=== PATIENT | male | born 1950 | race Caucasian/White ===

== ENCOUNTER 2016-10-01 10:33 | Emergency (ER) | payer OTHER ==
[2016-10-01] MEDS ORDERED: Sodium Chloride 0.9% 10 ML Syringe FLUSH PRN (10:52)
[2016-10-01] MEDS ORDERED: Aspirin 81 MG Tab.Chew PO ONE (10:52)
[2016-10-01] MEDS ORDERED: Morphine 4 MG/ML Syringe IVPUSH PRN (10:52)
--- NOTE | 2016-10-01 10:58 | EDM.PDOC ---
ED HISTORY OF PRESENT ILLNESS - General Chief Complaint: Cardiovascular Problem Stated Complaint: [id number] CHEST PAIN Time Seen by Provider: 10/01/16 10:54 Source of Information: Reports: Patient History Limitations: Reports: No limitations - History of Present Illness INITIAL COMMENTS - FREE TEXT/NARRATIVE: Pt states that he has been having flu like symptoms for the past 5 days but started having chest pain yesterday and today it became worse. states that he feels "like someone is standing on my chest with stilettos on" . denies shortness of breath currently. Symptom Onset Date: 10/01/16 Timing/Duration: Reports: Getting worse Severity: moderate Location, General: Reports: chest Quality: Reports: Pressure, Sharp Improves with: Reports: None Worsens with: Reports: None - Related Data Allergies/ADRs: Allergies Allergy/AdvReac Type Severity Reaction Status Date / Time prednisone Allergy Cannot Verified 02/16/16 11:13 Remember Home Meds: Home Meds Fish Oil/[place]-3 Fatty Acids [Fish Oil 1,000 MG] 2,000 mg PO BID 05/02/14 [ History] metFORMIN HCl [Metformin HCl] 1,000 mg PO BID 05/02/14 [History] Insulin Glargine,Hum.Rec.Anlog [Lantus Solostar] 80 units INJECT BEDTIME [History] Nitroglycerin [Nitrostat] 0.4 mg SL ONETIME PRN 12/15/14 [History] Metoprolol Tartrate 75 mg PO BID 04/03/16 [History] Niacin 1,000 mg PO BID 04/03/16 [History] Omeprazole 20 mg PO BEDTIME 04/03/16 [History] Aspirin 325 mg PO DAILY 10/01/16 [History] Past Medical History HEENT History: Reports: Other (see below) Other HEENT History: legally blind Cardiovascular History: Reports: Angina, CAD, High cholesterol, Hypertension, Stents Respiratory History: Reports: None Gastrointestinal History: Reports: GERD Genitourinary History: Reports: None Musculoskeletal History: Reports: None Neurological History: Reports: Other (see below) 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 Psychiatric History: Reports: None Endocrine/Metabolic History: Reports: Diabetes, type II Hematologic History: Reports: None Immunologic History: Reports: None Oncologic (Cancer) History: Reports: None Dermatologic History: Reports: None - Infectious Disease History Infectious Disease History: Reports: Chicken pox, Measles, Mumps - Past Surgical History Respiratory Surgical History: Reports: None Male Surgical History: Reports: None Social & Family History - Family History Family Medical History: Noncontributory - Tobacco Use Smoking Status *Q: Never Smoker Second Hand Smoke Exposure: No - Caffeine Use Caffeine Use: Reports: Coffee - Recreational Drug Use Recreational Drug Use: No - Living Situation & Occupation Living situation: Reports: Occupation: retired ED ROS GENERAL - Review of Systems Review Of Systems: See Below (radiating to bilateral sides of neck.) Cardiovascular: Reports: Chest pain ED EXAM, GENERAL - Physical Exam Exam: See Below Exam Limited By: No limitations General Appearance: alert, WD/WN, no apparent distress Head: atraumatic, normocephalic Neck: normal inspection, supple, non-tender, full range of motion Respiratory/Chest: no respiratory distress, lungs clear, normal breath sounds, no accessory muscle use, chest non-tender Cardiovascular: normal peripheral pulses, regular rate, rhythm, no edema, no gallop, no JVD, no murmur, no rub GI/Abdominal: normal bowel sounds, soft, non tender, no organomegaly, no distention, no abnormal bruit, no mass (Male) Exam: No hernia, Normal inspection, Normal prostate, Circumcised Neurological: alert, oriented, CN II-XII intact, normal cognition, normal gait, normal reflexes, no motor/sensory deficits Course - Vital Signs Last Recorded V/S: Last Vital Signs Temp 97.6 F 10/01/16 12:01 Pulse 74 10/01/16 12:01 Resp 17 10/01/16 12:01 BP 134/66 10/01/16 12:01 Pulse Ox 100 10/01/16 12:01 - Orders/Labs/Meds Orders: Active Orders 24 hr Category Date Time Status Cardiac Monitoring [RC] . DIRECTED Care 10/01/16 10:52 Active EKG Documentation Completion [RC] STAT Care 10/01/16 10:53 Active Oxygen Therapy [RC] PRN Care 10/01/16 10:53 Active Chest 2V [CR] Stat Exams 10/01/16 10:53 Taken Morphine Med 10/01/16 10:52 Active 4 mg IVPUSH Q10M PRN Sodium Chloride 0.9% [Saline Flush] Med 10/01/16 10:52 Active 10 ml FLUSH ASDIRECTED PRN Saline Lock Insert [OM.PC] Stat Oth 10/01/16 10:52 Ordered Medication Orders Morphine Sulfate (Morphine) 4 mg IVPUSH Q10M PRN PRN Reason: Chest Pain Stop: 10/02/16 10:52 Last Admin: 10/01/16 11:16 Dose: 4 mg Sodium Chloride (Saline Flush) 10 ml FLUSH ASDIRECTED PRN PRN Reason: Keep Vein Open Last Admin: 10/01/16 11:18 Dose: 10 ml Labs: Laboratory Tests 10/01/16 10/01/16 10/01/16 Range/Units 11:00 11:00 11:00 WBC 7.8 (5.0-10.0) 10^3/uL RBC 3.93 L (4.6-6.2) 10^6/uL Hgb 12.1 L (14.0-18.0) g/dL Hct 34.9 L (40.0-54.0) % MCV 88.8 (80-100) fL MCH 30.8 (27.0-34.0) pg MCHC 34.7 (33.0-35.0) g/dL Plt Count 230 (150-450) 10^3/uL Neut % (Auto) 53.2 (42.2-75.2) % Lymph % (Auto) 37.1 (20.5-50.1) % [place] % (Auto) 7.5 (2-8) % Eos % (Auto) 1.8 (1.0-3.0) % Baso % (Auto) 0.4 (0.0-1.0) % Sodium 138 (135-145) mmol/L Potassium 4.1 (3.6-5.0) mmol/L Chloride 104 (101-111) mmol/L Carbon Dioxide 25.0 (21.0-31.0) mmol/L Anion Gap 13.1 BUN 11 (7-18) mg/dL Creatinine 0.9 (0.6-1.3) mg/dL Est Cr Clr Drug Dosing TNP Estimated GFR (MDRD) > 60 BUN/Creatinine Ratio 12.22 Glucose 262 H (74-105) mg/dL Calcium 8.8 (8.4-10.2) mg/dl Total Bilirubin 0.4 (0.2-1.0) mg/dL AST 31 (10-42) IU/L ALT 50 (10-60) IU/L Alkaline Phosphatase 76 (42-121) IU/L Creatine Kinase 64 (26-174) IU/L Creatine Kinase Index 2.7 H (0-2.4) % CK-MB (CK-2) 1.70 (0.4-4.7) ng/mL Troponin I < 0.02 (0.00-0.02) ng/ml B-Natriuretic Peptide 77 (0-100) pg/ml Total Protein 6.5 L (6.7-8.2) g/dl Albumin 3.9 (3.2-5.5) g/dl Globulin 2.6 Albumin/Globulin Ratio 1.50 Meds: Medications Generic Name Dose Route Start Last Admin Trade Name Lloyd PRN Reason Stop Dose Admin Morphine Sulfate 4 mg 10/01/16 10:52 10/01/16 11:16 Morphine IVPUSH 10/02/16 10:52 4 mg Q10M PRN Administration Chest Pain Sodium Chloride 10 ml 10/01/16 10:52 10/01/16 11:18 Saline Flush FLUSH 10 ml ASDIRECTED PRN Administration Keep Vein Open Discontinued Medications Generic Name Dose Route Start Last Admin Trade Name Lloyd PRN Reason Stop Dose Admin Aspirin 324 mg 10/01/16 10:52 10/01/16 11:15 Aspirin PO 10/01/16 10:53 324 mg ONETIME ONE Administration - Re-Assessments/Exams Free Text/Narrative Re-Assessment/Exam: 10/01/16 12:11 Pt states that he feels better. No chest pain currently. Departure - Departure Time of Disposition: 12:20 Disposition: Home, Self-Care 01 Condition: good Clinical Impression: Chest pain Qualifiers: Chest pain type: unspecified Qualified Code(s): R07.9 - Chest pain, unspecified Forms: ED Department Discharge Additional Instructions: Take antacids as needed for any indigestion. Follow up with your PCP in 2 days for re-evaluation. Return for any worsening symptoms. - My Orders Last 24 Hours: My Active Orders 10/01/16 10:52 Cardiac Monitoring [RC] . DIRECTED Morphine 4 mg IVPUSH Q10M PRN Sodium Chloride 0.9% [Saline Flush] 10 ml FLUSH ASDIRECTED PRN Saline Lock Insert [OM.PC] Stat 10/01/16 10:53 EKG Documentation Completion [RC] STAT Oxygen Therapy [RC] PRN Chest 2V [CR] Stat - Assessment/Plan Last 24 Hours: My Active Orders 10/01/16 10:52 Cardiac Monitoring [RC] . DIRECTED Morphine 4 mg IVPUSH Q10M PRN Sodium Chloride 0.9% [Saline Flush] 10 ml FLUSH ASDIRECTED PRN Saline Lock Insert [OM.PC] Stat 10/01/16 10:53 EKG Documentation Completion [RC] STAT Oxygen Therapy [RC] PRN Chest 2V [CR] Stat
[2016-10-01 11:32] LABS: CHLORIDE,CL 104 mmol/L (101-111); SODIUM,NA 138 mmol/L (135-145)
[2016-10-01 12:03] VITALS: BP 134/66
--- NOTE | 2016-10-02 22:37 | EKG ---
10/01/2016 - JULY SEPULVEDA - TIME: 10:41 a.m. EKG shows normal sinus rhythm. There is a first-degree AV block. [facility] /[id number]
== END 2016-10-01 12:40 | disposition home or self-care (01) ==
LOC: DL.ED 10:33
DX: R07.9 Chest pain, unspecified (principal); I25.10 Atherosclerotic heart disease of native coronary artery without angina pectoris; E78.00 Pure hypercholesterolemia, unspecified; I10 Essential (primary) hypertension; K21.9 Gastro-esophageal reflux disease without esophagitis; E11.9 Type 2 diabetes mellitus without complications; Z88.8 Allergy status to other drugs, medicaments and biological substances; Z79.4 Long term (current) use of insulin
CPT/HCPCS: 36415; 71020; 80053; 82550; 82553; 83880; 84484; 85025; 93005; 93010; 94762; 99285; A9270; J2270; J7050; 99284

== ENCOUNTER 2016-11-15 12:10 | Emergency (ER) | payer OTHER ==
[2016-11-15 12:35] VITALS: BP 150/75
--- NOTE | 2016-11-15 13:28 | EDM.PDOC ---
ED HPI GENERAL MEDICAL PROBLEM - General Chief Complaint: Bite:Animal, Insect Stated Complaint: [facility] Time Seen by Provider: 11/15/16 13:27 Source of Information: Reports: Patient, RN History Limitations: Reports: No Limitations - History of Present Illness INITIAL COMMENTS - FREE TEXT/NARRATIVE: He pulled a tick off the anterior chest on Friday which is 4 days ago. The area at lower midline chest at median lower chest sternotomy incision. Area has become red and tender. No drainage. No fever. Says he is legally blind and that it definitely was a tick. Onset: Gradual Onset Date: 11/11/16 Duration: Day(s): Location: Reports: Chest Severity: Moderate Improves with: Reports: None Worsens with: Reports: None - Related Data Allergies Allergy/AdvReac Type Severity Reaction Status Date / Time prednisone Allergy Cannot Verified 02/16/16 11:13 Remember Home Meds: Home Meds Fish Oil/[place]-3 Fatty Acids [Fish Oil 1,000 MG] 2,000 mg PO BID 05/02/14 [ History] metFORMIN HCl [Metformin HCl] 1,000 mg PO BID 05/02/14 [History] Insulin Glargine,Hum.Rec.Anlog [Lantus Solostar] 80 units INJECT BEDTIME [History] Metoprolol Tartrate 75 mg PO BID 04/03/16 [History] Niacin 1,000 mg PO BID 04/03/16 [History] Omeprazole 20 mg PO BEDTIME 04/03/16 [History] Aspirin 325 mg PO DAILY 10/01/16 [History] Amiodarone HCl [Pacerone] 1 tab PO DAILY 11/15/16 [History] Cholecalciferol (Vitamin D3) [Vitamin D3] 2 tab PO BID 11/15/16 [History] Past Medical History HEENT History: Reports: Cataract, Other (See Below) Other HEENT History: legally blind Cardiovascular History: Reports: Angina, CAD, High Cholesterol, Hypertension, Stents Respiratory History: Reports: None Gastrointestinal History: Reports: GERD Genitourinary History: Reports: None Musculoskeletal History: Reports: None Neurological History: Reports: Other (See Below) 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 Psychiatric History: Reports: None Endocrine/Metabolic History: Reports: Diabetes, Type II Hematologic History: Reports: None Immunologic History: Reports: None Oncologic (Cancer) History: Reports: None Dermatologic History: Reports: None - Infectious Disease History Infectious Disease History: Reports: Chicken Pox, Measles, Mumps - Past Surgical History HEENT Surgical History: Reports: Cataract Surgery Cardiovascular Surgical History: Reports: Coronary Artery Bypass, Coronary Artery Stent Respiratory Surgical History: Reports: None Male Surgical History: Reports: None Musculoskeletal Surgical History: Reports: Arthroscopic Knee, Other (See Below) Other Musculoskeletal Surgeries/Procedures:: ulna relocation Social & Family History - Family History Family Medical History: Noncontributory - Tobacco Use Smoking Status *Q: Never Smoker Second Hand Smoke Exposure: No - Caffeine Use Caffeine Use: Reports: Coffee, Soda - Recreational Drug Use Recreational Drug Use: No - Living Situation & Occupation Living situation: Reports: Occupation: Retired ED ROS GENERAL - Review of Systems Review Of Systems: ROS reveals no pertinent complaints other than HPI. ED EXAM, ANIMAL BITE - Physical Exam Exam: See Below Exam Limited By: No Limitations General Appearance: Alert, WD/WN, No Apparent Distress Eye Exam: Bilateral Eye: Normal Inspection Respiratory/Chest: No Respiratory Distress, Lungs Clear, Normal Breath Sounds, No Accessory Muscle Use, Chest Non-Tender Skin Exam: Other (At the lower midline chest incision is an area of redness measuring about 2 cm with tender erythema to the left. There is 1 cm of superficial fluctuance which could be I and D'ed) ED ANIMAL BITE PROCEDURES - I&D Site: chest Skin prep: providone-iodine (betadine) Local anesthesia: Lidocaine: 1% with epi Drainage: clear, no drainage Probed to break up loculations: Yes Sterile dressing: none Complications: No (1 cm incision in area of most erythema which had minimal fluctuance. No purulence. Band nathaly applied by his nurse.) Course - Vital Signs Last Recorded V/S: Last Vital Signs Temp 97.4 F 11/15/16 12:34 Pulse 66 11/15/16 12:34 Resp 16 11/15/16 12:34 BP 150/75 H 11/15/16 12:34 Pulse Ox 100 11/15/16 12:34 - Orders/Labs/Meds Orders: Active Orders 24 hr Category Date Time Status CULTURE WOUND [RM] Stat Lab 11/15/16 14:28 Received [email or web address]/B.BURGDORFERI IGG/IGM [REF] Stat Lab 11/15/16 14:00 Received Labs: Laboratory Tests 11/15/16 Range/Units 14:00 WBC 6.5 (5.0-10.0) 10^3/uL RBC 3.76 L (4.6-6.2) 10^6/uL Hgb 11.6 L (14.0-18.0) g/dL Hct 34.3 L (40.0-54.0) % MCV 91.2 (80-100) fL MCH 30.9 (27.0-34.0) pg MCHC 33.8 (33.0-35.0) g/dL Plt Count 209 (150-450) 10^3/uL Neut % (Auto) 49.4 (42.2-75.2) % Lymph % (Auto) 37.8 (20.5-50.1) % [place] % (Auto) 8.6 H (2-8) % Eos % (Auto) 3.7 H (1.0-3.0) % Baso % (Auto) 0.5 (0.0-1.0) % Meds: Medications Discontinued Medications Generic Name Dose Route Start Last Admin Trade Name Ashq PRN Reason Stop Dose Admin Lidocaine/Epinephrine 20 ml 11/15/16 13:50 11/15/16 14:48 Xylocaine 1% With Epinephrine 1:100,000 INJECT 11/15/16 13:51 20 ml ONETIME ONE Administration Departure - Departure Time of Disposition: 14:55 Disposition: Home, Self-Care 01 Condition: good Clinical Impression: Abscess or cellulitis of chest wall Cellulitis Qualifiers: Site of cellulitis: other site Qualified Code(s): L03.818 - Cellulitis of other sites - Discharge Information Instructions: Cellulitis, Adult, [id number] Forms: ED Department Discharge Additional Instructions: Rx ; Doxcycline 100 mg po bid for 10 days. Follow up with your doctor in 7 days. Have your doctor repeat lymes test in one month. - My Orders Last 24 Hours: My Active Orders 11/15/16 14:00 [email or web address]/B.BURGDORFERI IGG/IGM [REF] Stat 11/15/16 14:28 CULTURE WOUND [RM] Stat - Assessment/Plan Last 24 Hours: My Active Orders 11/15/16 14:00 [email or web address]/B.BURGDORFERI IGG/IGM [REF] Stat 11/15/16 14:28 CULTURE WOUND [RM] Stat
[2016-11-15] MEDS ORDERED: Lidocaine 1% with EPINEPHrine 1:100,000 20 ML MDV INJECT ONE (13:50)
== END 2016-11-15 15:00 | disposition home or self-care (01) ==
LOC: DL.ED 12:10
DX: L03.313 Cellulitis of chest wall (principal); E78.00 Pure hypercholesterolemia, unspecified; I10 Essential (primary) hypertension; K21.9 Gastro-esophageal reflux disease without esophagitis; I25.10 Atherosclerotic heart disease of native coronary artery without angina pectoris; E11.9 Type 2 diabetes mellitus without complications; Z88.8 Allergy status to other drugs, medicaments and biological substances; Z79.4 Long term (current) use of insulin; Z79.82 Long term (current) use of aspirin; Z79.899 Other long term (current) drug therapy; W57.XXXA Bitten or stung by nonvenomous insect and other nonvenomous arthropods, initial encounter
CPT/HCPCS: 10060; 36415; 85025; 86618; 87070; 99283

== ENCOUNTER 2016-12-05 20:47 | Emergency (ER) | payer OTHER ==
[2016-12-05 20:59] VITALS: BP 153/73
--- NOTE | 2016-12-05 21:24 | EDM.PDOC ---
ED HPI GENERAL MEDICAL PROBLEM - General Chief Complaint: Chest Pain Stated Complaint: CHEST PAINS, [id number] Time Seen by Provider: 12/05/16 21:15 Source of Information: Reports: Patient History Limitations: Reports: No Limitations - History of Present Illness INITIAL COMMENTS - FREE TEXT/NARRATIVE: This 66 yo male patient reports to the ED with chest pain that started at about 1000 this morning. The patient reports he has had similar chest pain over the past 10 days. The patient reports [facility] and was told "not to worry about it." The patient reports he took 2 doses of Nitro today with no change in his pain. The patient reports over the past 10 days, his pain has been present for 5-6 hours, but resolved after rest. The patient has had about 7 stents and 3 bypasses in the past. Onset: Today Onset Date: 12/05/16 Onset Time: 10:00 Duration: Intermittent, Other (The patient describes his pain as a "fat lady in heels standing on my chest.") Location: Reports: Chest Quality: Reports: Ache, Dull, Other (radiates to his arms) Severity: Severe Improves with: Reports: None Worsens with: Reports: None Associated Symptoms: Reports: Chest Pain Treatments GUEST RELATIONS RECEPTIONIST: Reports: Aspirin, Nitroglycerin (x2) Middle Chest Pain Score (Numeric/FACES): 5 - Related Data Allergies Allergy/AdvReac Type Severity Reaction Status Date / Time prednisone Allergy Cannot Verified 12/05/16 20:55 Remember Home Meds: Home Meds Fish Oil/[place]-3 Fatty Acids [Fish Oil 1,000 MG] 2,000 mg PO BID 05/02/14 [ History] metFORMIN HCl [Metformin HCl] 1,000 mg PO BID 05/02/14 [History] Insulin Glargine,Hum.Rec.Anlog [Lantus Solostar] 80 units INJECT BEDTIME [History] Metoprolol Tartrate 75 mg PO BID 04/03/16 [History] Niacin 1,000 mg PO BID 04/03/16 [History] Omeprazole 20 mg PO BEDTIME 04/03/16 [History] Aspirin 325 mg PO DAILY 10/01/16 [History] Amiodarone HCl [Pacerone] 1 tab PO DAILY 11/15/16 [History] Cholecalciferol (Vitamin D3) [Vitamin D3] 2 tab PO BID 11/15/16 [History] Past Medical History HEENT History: Reports: Cataract, Other (See Below) Other HEENT History: legally blind Cardiovascular History: Reports: Angina, CAD, High Cholesterol, Hypertension, Stents Respiratory History: Reports: None Gastrointestinal History: Reports: GERD Genitourinary History: Reports: None Musculoskeletal History: Reports: None Neurological History: Reports: Other (See Below) 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 Psychiatric History: Reports: None Endocrine/Metabolic History: Reports: Diabetes, Type II Hematologic History: Reports: None Immunologic History: Reports: None Oncologic (Cancer) History: Reports: None Dermatologic History: Reports: None - Infectious Disease History Infectious Disease History: Reports: Chicken Pox, Measles, Mumps - Past Surgical History HEENT Surgical History: Reports: Cataract Surgery Cardiovascular Surgical History: Reports: Coronary Artery Bypass, Coronary Artery Stent Respiratory Surgical History: Reports: None Male Surgical History: Reports: None Musculoskeletal Surgical History: Reports: Arthroscopic Knee, Other (See Below) Other Musculoskeletal Surgeries/Procedures:: ulna relocation Social & Family History - Family History Family Medical History: Noncontributory - Tobacco Use Smoking Status *Q: Never Smoker Second Hand Smoke Exposure: No - Caffeine Use Caffeine Use: Reports: Coffee, Soda - Recreational Drug Use Recreational Drug Use: No - Living Situation & Occupation Living situation: Reports: Occupation: Retired ED ROS GENERAL - Review of Systems Review Of Systems: ROS reveals no pertinent complaints other than HPI. ED EXAM, GENERAL - Physical Exam Exam: See Below Exam Limited By: No Limitations General Appearance: Alert, WD/WN, Moderate Distress Eye Exam: Bilateral Eye: EOMI, Normal Inspection, PERRL Ears: Normal External Exam, Normal Canal, Hearing Grossly Normal, Normal TMs Nose: Normal Inspection, Normal Mucosa, No Blood Throat/Mouth: Normal Inspection, Normal Lips, Normal Teeth, Normal Gums, Normal Oropharynx, Normal Voice, No Airway Compromise Head: Atraumatic, Normocephalic Neck: Normal Inspection, Supple, Non-Tender, Full Range of Motion Respiratory/Chest: No Respiratory Distress, Lungs Clear, Normal Breath Sounds, No Accessory Muscle Use, Chest Non-Tender Cardiovascular: Normal Peripheral Pulses, Regular Rate, Rhythm, No Edema, No Gallop GI/Abdominal: Normal Bowel Sounds, Soft, Non-Tender, No Organomegaly, No Distention, No Abnormal Bruit, No Mass (Male) Exam: Deferred Rectal (Males) Exam: Deferred Back Exam: Normal Inspection, Full Range of Motion, NT Extremities: Normal Inspection, Normal Range of Motion, Non-Tender, Normal Capillary Refill, No Pedal Edema Neurological: Alert, Oriented, CN II-XII Intact, Normal Cognition, Normal Gait, Normal Reflexes, No Motor/Sensory Deficits Psychiatric: Normal Affect, Normal Mood Skin Exam: Warm, Dry, Intact, Normal Color, No Rash Lymphatic: No Adenopathy Course - Vital Signs Last Recorded V/S: Last Vital Signs Temp 36.4 C 12/05/16 20:55 Pulse 68 12/05/16 20:55 Resp 18 12/05/16 20:55 BP 153/73 H 12/05/16 20:55 Pulse Ox 99 12/05/16 20:55 - Orders/Labs/Meds Orders: Active Orders 24 hr Category Date Time Status EKG Documentation Completion [RC] URGENT Care 12/05/16 20:57 Active Labs: Laboratory Tests 12/05/16 12/05/16 Range/Units 20:55 20:55 WBC 8.4 (5.0-10.0) 10^3/uL RBC 3.92 L (4.6-6.2) 10^6/uL Hgb 12.3 L (14.0-18.0) g/dL Hct 35.4 L (40.0-54.0) % MCV 90.3 (80-100) fL MCH 31.4 (27.0-34.0) pg MCHC 34.7 (33.0-35.0) g/dL Plt Count 273 (150-450) 10^3/uL Neut % (Auto) 49.5 (42.2-75.2) % Lymph % (Auto) 37.1 (20.5-50.1) % [place] % (Auto) 8.2 H (2-8) % Eos % (Auto) 4.6 H (1.0-3.0) % Baso % (Auto) 0.6 (0.0-1.0) % Sodium 139 (135-145) mmol/L Potassium 3.9 (3.6-5.0) mmol/L Chloride 104 (101-111) mmol/L Carbon Dioxide 26.0 (21.0-31.0) mmol/L Anion Gap 12.9 BUN 18 (7-18) mg/dL Creatinine 0.9 (0.6-1.3) mg/dL Est Cr Clr Drug Dosing 86.22 mL/min Estimated GFR (MDRD) > 60 BUN/Creatinine Ratio 20.00 Glucose 187 H (74-105) mg/dL Calcium 9.6 (8.4-10.2) mg/dl Total Bilirubin 0.2 (0.2-1.0) mg/dL AST 23 (10-42) IU/L ALT 23 (10-60) IU/L Alkaline Phosphatase 75 (42-121) IU/L Troponin I < 0.02 (0.00-0.02) ng/ml Total Protein 7.1 (6.7-8.2) g/dl Albumin 4.2 (3.2-5.5) g/dl Globulin 2.9 Albumin/Globulin Ratio 1.45 Meds: Medications Discontinued Medications Generic Name Dose Route Start Last Admin Trade Name Freq PRN Reason Stop Dose Admin Al Hydroxide/Mg Hydroxide 30 ml 12/05/16 21:44 12/05/16 21:48 Gi Cocktail PO 12/05/16 21:45 30 ml ONETIME ONE Administration Departure - Departure Time of Disposition: 10:49 Disposition: Home, Self-Care 01 Condition: fair Clinical Impression: Non-cardiac chest pain Instructions: Nonspecific Chest Pain, [id number] Forms: ED Department Discharge Care Plan Goals: The patient was advised of the examination, lab, and EKG results during the visit. The patient was encouraged to follow-up with his primary care facility tomorrow for further evaluation and management. If the patient has any additional symptoms or concerns, the patient should visit his primary care facility or return to the emergency department. - My Orders Last 24 Hours: My Active Orders 12/05/16 20:57 EKG Documentation Completion [RC] URGENT - Assessment/Plan Last 24 Hours: My Active Orders 12/05/16 20:57 EKG Documentation Completion [RC] URGENT
[2016-12-05 21:26] LABS: CHLORIDE,CL 104 mmol/L (101-111); SODIUM,NA 139 mmol/L (135-145)
[2016-12-05] MEDS ORDERED: GI Cocktail Oral Solution 30 ML PO ONE (21:44)
--- NOTE | 2016-12-06 12:12 | EKG ---
12/05/2016 - JULY SEPULVEDA - Twelve-lead EKG shows normal sinus rhythm. No significant ST elevation or ST depression noted on this 12-lead EKG. Nonspecific T-wave changes noted on the lateral leads. [facility] /[id number]
== END 2016-12-05 23:02 | disposition home or self-care (01) ==
LOC: DL.ED 20:47
DX: R07.89 Other chest pain (principal); I10 Essential (primary) hypertension; K21.9 Gastro-esophageal reflux disease without esophagitis; E11.9 Type 2 diabetes mellitus without complications; Z98.49 Cataract extraction status, unspecified eye; Z95.5 Presence of coronary angioplasty implant and graft; Z79.899 Other long term (current) drug therapy; Z79.84 Long term (current) use of oral hypoglycemic drugs; Z79.4 Long term (current) use of insulin; Z79.82 Long term (current) use of aspirin; Z88.8 Allergy status to other drugs, medicaments and biological substances; I25.810 Atherosclerosis of coronary artery bypass graft(s) without angina pectoris; E78.00 Pure hypercholesterolemia, unspecified
CPT/HCPCS: 36415; 80053; 84484; 85025; 93005; 93010; 99283; 99285; A9270

== ENCOUNTER 2017-08-05 15:03 | Emergency (ER) | payer OTHER ==
[2017-08-05 16:13] LABS: ANION GAP 15.2; CHLORIDE,CL 104 mmol/L (101-111); SODIUM,NA 139 mmol/L (135-145)
--- NOTE | 2017-08-05 16:15 | EDM.PDOC ---
ED HPI GENERAL MEDICAL PROBLEM - General Chief Complaint: General Stated Complaint: ACHES/PAINS, FLU... [id number] Time Seen by Provider: 08/05/17 16:00 Source of Information: Reports: Patient, RN, RN Notes Reviewed History Limitations: Reports: No Limitations - History of Present Illness INITIAL COMMENTS - FREE TEXT/NARRATIVE: Patient presents to ER from [place] clinic with complaint of not feeling well and right sided chest pressure. He is short of breath at times. His symptoms began on Friday. He has had vomiting, nausea, diarrhea, fever, chills and feeling weak. He has been exposed to Influenza A. Location: Reports: Chest Quality: Reports: Ache Severity: Moderate Improves with: Reports: None Worsens with: Reports: None Associated Symptoms: Reports: No Other Symptoms Generalized Pain Score (Numeric/FACES): 5 - Related Data Allergies Allergy/AdvReac Type Severity Reaction Status Date / Time prednisone Allergy Cannot Verified 12/05/16 20:55 Remember Home Meds: Home Meds Fish Oil/[place]-3 Fatty Acids [Fish Oil 1,000 MG] 2,000 mg PO BID 05/02/14 [ History] metFORMIN HCl [Metformin HCl] 1,000 mg PO BID 05/02/14 [History] Insulin Glargine,Hum.Rec.Anlog [Lantus Solostar] 80 units INJECT BEDTIME [History] Metoprolol Tartrate 75 mg PO BID 04/03/16 [History] Niacin 1,000 mg PO BID 04/03/16 [History] Omeprazole 20 mg PO BEDTIME 04/03/16 [History] Aspirin 325 mg PO DAILY 10/01/16 [History] Amiodarone HCl [Pacerone] 1 tab PO DAILY 11/15/16 [History] Cholecalciferol (Vitamin D3) [Vitamin D3] 2 tab PO BID 11/15/16 [History] Past Medical History HEENT History: Reports: Cataract, Other (See Below) Other HEENT History: legally blind Cardiovascular History: Reports: Angina, CAD, High Cholesterol, Hypertension, Stents Respiratory History: Reports: None Gastrointestinal History: Reports: GERD Genitourinary History: Reports: None Musculoskeletal History: Reports: None Neurological History: Reports: Other (See Below) 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 Psychiatric History: Reports: None Endocrine/Metabolic History: Reports: Diabetes, Type II Hematologic History: Reports: None Immunologic History: Reports: None Oncologic (Cancer) History: Reports: None Dermatologic History: Reports: None - Infectious Disease History Infectious Disease History: Reports: Chicken Pox, Measles, Mumps - Past Surgical History HEENT Surgical History: Reports: Cataract Surgery Cardiovascular Surgical History: Reports: Coronary Artery Bypass, Coronary Artery Stent Respiratory Surgical History: Reports: None Male Surgical History: Reports: None Musculoskeletal Surgical History: Reports: Arthroscopic Knee, Other (See Below) Other Musculoskeletal Surgeries/Procedures:: ulna relocation Social & Family History - Family History Family Medical History: Noncontributory - Tobacco Use Smoking Status *Q: Never Smoker Second Hand Smoke Exposure: No - Caffeine Use Caffeine Use: Reports: Coffee, Soda - Recreational Drug Use Recreational Drug Use: No - Living Situation & Occupation Living situation: Reports: Occupation: Retired ED ROS GENERAL - Review of Systems Review Of Systems: ROS reveals no pertinent complaints other than HPI. ED EXAM, GENERAL - Physical Exam Exam: See Below Exam Limited By: No Limitations General Appearance: Alert, WD/WN, No Apparent Distress Eye Exam: Bilateral Eye: Normal Inspection Ears: Normal External Exam, Normal Canal, Hearing Grossly Normal, Normal TMs Nose: Normal Inspection, Normal Mucosa, No Blood Throat/Mouth: Normal Inspection, Normal Lips, Normal Teeth, Normal Gums, Normal Oropharynx, Normal Voice, No Airway Compromise Head: Atraumatic, Normocephalic Neck: Normal Inspection, Supple, Non-Tender, Full Range of Motion Respiratory/Chest: Other (diminished) Cardiovascular: Normal Peripheral Pulses, Regular Rate, Rhythm, No Edema, No Gallop, No JVD, No Murmur, No Rub GI/Abdominal: Normal Bowel Sounds, Soft, Non-Tender, No Organomegaly, No Distention, No Abnormal Bruit, No Mass (Male) Exam: Deferred Rectal (Males) Exam: Deferred Back Exam: Normal Inspection Extremities: Other (weak, aches and decreased range of motion.) Neurological: Alert, Oriented, CN II-XII Intact, Normal Cognition, Normal Gait, Normal Reflexes, No Motor/Sensory Deficits Psychiatric: Normal Affect, Normal Mood Skin Exam: Other (pale) Lymphatic: No Adenopathy EKG INTERPRETATION EKG Date: 08/05/17 Time: 15:29 Rate (Beats/Min): 62 EKG Interpretation Comments: EKG shows sinus rhythm. First degree AV block. Course - Vital Signs Last Recorded V/S: Last Vital Signs Temp 97.6 F 08/05/17 15:21 Pulse 61 08/05/17 15:21 Resp 16 08/05/17 15:21 BP 133/78 08/05/17 15:21 Pulse Ox 99 08/05/17 15:21 - Orders/Labs/Meds Orders: Active Orders 24 hr Category Date Time Status EKG Documentation Completion [RC] STAT Care 08/05/17 15:20 Active Peripheral IV Care [RC] . DIRECTED Care 08/05/17 16:24 Active Chest 1V Frontal [CR] Stat Exams 08/05/17 15:20 Taken CULTURE BLOOD [BC] Stat Lab 08/05/17 15:35 Received CULTURE BLOOD [BC] Stat Lab 08/05/17 15:44 Received UA W/MICROSCOPIC [URIN] Stat Lab 08/05/17 17:17 Ordered Sodium Chloride 0.9% [Normal Saline] 1,000 ml Med 08/05/17 16:24 Active IV .BOLUS Sodium Chloride 0.9% [Saline Flush] Med 08/05/17 16:23 Active 10 ml FLUSH ASDIRECTED PRN Blood Culture x2 Reflex Set [OM.PC] Stat Oth 08/05/17 15:20 Ordered Peripheral IV Insertion Adult [OM.PC] Stat Oth 08/05/17 16:23 Ordered Medication Orders Sodium Chloride (Normal Saline) 1,000 mls @ 999 mls/hr IV .BOLUS ONE Stop: 08/05/17 17:24 Last Admin: 08/05/17 16:40 Dose: 999 mls/hr Sodium Chloride (Saline Flush) 10 ml FLUSH ASDIRECTED PRN PRN Reason: Keep Vein Open Last Admin: 08/05/17 16:40 Dose: 10 ml Labs: Laboratory Tests 08/05/17 08/05/17 08/05/17 Range/Units 15:35 15:35 15:35 WBC 9.5 (5.0-10.0) 10^3/uL RBC 4.45 L (4.6-6.2) 10^6/uL Hgb 13.4 L (14.0-18.0) g/dL Hct 39.5 L (40.0-54.0) % MCV 88.8 (80-100) fL MCH 30.1 (27.0-34.0) pg MCHC 33.9 (33.0-35.0) g/dL Plt Count 292 (150-450) 10^3/uL Neut % (Auto) 60.1 (42.2-75.2) % Lymph % (Auto) 29.8 (20.5-50.1) % [place] % (Auto) 6.8 (2-8) % Eos % (Auto) 3.1 H (1.0-3.0) % Baso % (Auto) 0.2 (0.0-1.0) % Sodium 139 (135-145) mmol/L Potassium 4.2 (3.6-5.0) mmol/L Chloride 104 (101-111) mmol/L Carbon Dioxide 24.0 (21.0-31.0) mmol/L Anion Gap 15.2 BUN 18 (7-18) mg/dL Creatinine 1.1 (0.6-1.3) mg/dL Est Cr Clr Drug Dosing 70.55 mL/min Estimated GFR (MDRD) > 60 BUN/Creatinine Ratio 16.36 Glucose 97 (74-105) mg/dL Lactic Acid 1.4 (0.5-2.2) mmol/L Calcium 9.2 (8.4-10.2) mg/dl Total Bilirubin 0.8 (0.2-1.0) mg/dL AST 23 (10-42) IU/L ALT 24 (10-60) IU/L Alkaline Phosphatase 70 (42-121) IU/L Troponin I < 0.02 (0.00-0.02) ng/ml B-Natriuretic Peptide 58 (0-100) pg/ml Total Protein 8.1 (6.7-8.2) g/dl Albumin 4.7 (3.2-5.5) g/dl Globulin 3.4 Albumin/Globulin Ratio 1.38 Meds: Medications Generic Name Dose Route Start Last Admin Trade Name Freq PRN Reason Stop Dose Admin Sodium Chloride 1,000 mls @ 999 mls/hr 08/05/17 16:24 08/05/17 16:40 Normal Saline IV 08/05/17 17:24 999 mls/hr .BOLUS ONE Administration Sodium Chloride 10 ml 08/05/17 16:23 08/05/17 16:40 Saline Flush FLUSH 10 ml ASDIRECTED PRN Administration Keep Vein Open - Radiology Interpretation Free Text/Narrative:: Chest x-ray:No acute findings.See Rad report. Departure - Departure Time of Disposition: 17:45 Disposition: Home, Self-Care 01 Condition: Fair Clinical Impression: Gastroenteritis - Discharge Information Instructions: Viral Gastroenteritis, Adult, [id number], Food Choices to Help Relieve Diarrhea, Adult, Nausea, Adult, [id number], Diarrhea, Adult, Easy-to- Read Forms: ED Department Discharge Additional Instructions: Imodium for diarrhea Drink plenty of fluids Follow up with your primary care facility Rest - My Orders Last 24 Hours: My Active Orders 08/05/17 15:20 EKG Documentation Completion [RC] STAT Chest 1V Frontal [CR] Stat Blood Culture x2 Reflex Set [OM.PC] Stat 08/05/17 15:35 CULTURE BLOOD [BC] Stat 08/05/17 15:44 CULTURE BLOOD [BC] Stat 08/05/17 16:23 Sodium Chloride 0.9% [Saline Flush] 10 ml FLUSH ASDIRECTED PRN Peripheral IV Insertion Adult [OM.PC] Stat 08/05/17 16:24 Peripheral IV Care [RC] . DIRECTED Sodium Chloride 0.9% [Normal Saline] 1,000 ml IV .BOLUS 08/05/17 17:17 UA W/MICROSCOPIC [URIN] Stat - Assessment/Plan Last 24 Hours: My Active Orders 08/05/17 15:20 EKG Documentation Completion [RC] STAT Chest 1V Frontal [CR] Stat Blood Culture x2 Reflex Set [OM.PC] Stat 08/05/17 15:35 CULTURE BLOOD [BC] Stat 08/05/17 15:44 CULTURE BLOOD [BC] Stat 08/05/17 16:23 Sodium Chloride 0.9% [Saline Flush] 10 ml FLUSH ASDIRECTED PRN Peripheral IV Insertion Adult [OM.PC] Stat 08/05/17 16:24 Peripheral IV Care [RC] . DIRECTED Sodium Chloride 0.9% [Normal Saline] 1,000 ml IV .BOLUS 08/05/17 17:17 UA W/MICROSCOPIC [URIN] Stat
[2017-08-05] MEDS ORDERED: Sodium Chloride 0.9% 10 ML Syringe FLUSH PRN (16:23)
[2017-08-05] MEDS ORDERED: Sodium Chloride 0.9% 1,000 ML IV ONE (16:24)
[2017-08-05 18:00] VITALS: BP 129/65
--- NOTE | 2017-08-07 18:41 | EKG ---
08/05/2017 - JULY SEPULVEDA - FINDINGS: A 12-lead EKG shows normal sinus rhythm with first-degree AV block. [place] interval of 264. QTc of 472. No significant ST elevation or ST depression noted on this 12-lead EKG. [facility] /[id number]
== END 2017-08-05 17:49 | disposition home or self-care (01) ==
LOC: DL.ED 15:03 → EEVIPCON 15:03 → DL.ED 17:49
DX: K52.9 Noninfective gastroenteritis and colitis, unspecified (principal); R07.89 Other chest pain; I10 Essential (primary) hypertension; I25.10 Atherosclerotic heart disease of native coronary artery without angina pectoris; E78.00 Pure hypercholesterolemia, unspecified; E11.9 Type 2 diabetes mellitus without complications; K21.9 Gastro-esophageal reflux disease without esophagitis; Z79.82 Long term (current) use of aspirin; Z79.4 Long term (current) use of insulin; Z79.899 Other long term (current) drug therapy; Z88.8 Allergy status to other drugs, medicaments and biological substances; Z95.1 Presence of aortocoronary bypass graft; Z95.5 Presence of coronary angioplasty implant and graft
CPT/HCPCS: 36415; 71045; 80053; 81001; 83605; 83880; 84484; 85025; 87040; 93005; 93010; 96360; 99284; J7030; J7050; 99283

== ENCOUNTER 2017-08-18 12:08 | Emergency (ER) | payer OTHER ==
[2017-08-18] MEDS ORDERED: Sodium Chloride 0.9% 10 ML Syringe FLUSH PRN (12:09)
--- NOTE | 2017-08-18 12:09 | EDM.PDOC ---
ED HPI GENERAL MEDICAL PROBLEM - General Chief Complaint: Chest Pain Stated Complaint: FROM [place] Time Seen by Provider: 08/18/17 12:09 Source of Information: Reports: Patient, Old Records, RN, RN Notes Reviewed History Limitations: Reports: No Limitations - History of Present Illness INITIAL COMMENTS - FREE TEXT/NARRATIVE: Arrives from [place] [facility] with c/o of chest pain x4 days. Pt states the pain has actually been there intermittently for nearly a year. Pt describes a sharp pain under the mid and upper chest that is worse with deep breathing and cough. Pt states he feels an urge to cough, but nothing comes up, and he states he really doesn't actually have a cough. Pt has been taking Nitroglycerin 0.4mg SL several times a day without any relief of the pain. He also has been taking Aspirin 325mg once daily. He has not followed up with a supervisory aide since having a CABG 2 yrs ago. Onset: Unknown/Unsure Duration: Intermittent, Recurring Location: Reports: Chest Quality: Reports: Sharp Severity: Mild Improves with: Reports: None Worsens with: Reports: None Associated Symptoms: Reports: No Other Symptoms Treatments CONTENT WRITER: Reports: Aspirin, Nitroglycerin Left Mid-Sternal Chest Pain Score (Numeric/FACES): 4 - Related Data Allergies Allergy/AdvReac Type Severity Reaction Status Date / Time prednisone Allergy Cannot Verified 08/18/17 12:26 Remember Home Meds: Home Meds Fish Oil/[place]-3 Fatty Acids [Fish Oil 1,000 MG] 2,000 mg PO BID 05/02/14 [ History] metFORMIN HCl [Metformin HCl] 1,000 mg PO BID 05/02/14 [History] Insulin Glargine,Hum.Rec.Anlog [Lantus Solostar] 90 units INJECT BEDTIME [History] Metoprolol Tartrate 75 mg PO BID 04/03/16 [History] Niacin 1,000 mg PO BID 04/03/16 [History] Omeprazole 20 mg PO BEDTIME 04/03/16 [History] Aspirin 325 mg PO DAILY 10/01/16 [History] Amiodarone HCl [Pacerone] 1 tab PO DAILY 11/15/16 [History] Cholecalciferol (Vitamin D3) [Vitamin D3] 2 tab PO BID 11/15/16 [History] Past Medical History HEENT History: Reports: Cataract, Other (See Below) Other HEENT History: legally blind Cardiovascular History: Reports: Angina, CAD, High Cholesterol, Hypertension, Stents Respiratory History: Reports: None Gastrointestinal History: Reports: GERD Genitourinary History: Reports: None Musculoskeletal History: Reports: None Neurological History: Reports: Other (See Below) 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 Psychiatric History: Reports: None Endocrine/Metabolic History: Reports: Diabetes, Type II Hematologic History: Reports: None Immunologic History: Reports: None Oncologic (Cancer) History: Reports: None Dermatologic History: Reports: None - Infectious Disease History Infectious Disease History: Reports: Chicken Pox, Measles, Mumps - Past Surgical History HEENT Surgical History: Reports: Cataract Surgery Cardiovascular Surgical History: Reports: Coronary Artery Bypass, Coronary Artery Stent Respiratory Surgical History: Reports: None Male Surgical History: Reports: None Musculoskeletal Surgical History: Reports: Arthroscopic Knee, Other (See Below) Other Musculoskeletal Surgeries/Procedures:: ulna relocation Social & Family History - Family History Family Medical History: Noncontributory - Tobacco Use Smoking Status *Q: Never Smoker Second Hand Smoke Exposure: No - Caffeine Use Caffeine Use: Reports: Coffee, Soda - Recreational Drug Use Recreational Drug Use: No - Living Situation & Occupation Living situation: Reports: Occupation: Retired ED ROS GENERAL - Review of Systems Review Of Systems: ROS reveals no pertinent complaints other than HPI. ED EXAM, GENERAL - Physical Exam Exam: See Below Exam Limited By: No Limitations General Appearance: Alert, WD/WN, No Apparent Distress Nose: Normal Inspection, Normal Mucosa, No Blood Throat/Mouth: Normal Inspection Head: Atraumatic, Normocephalic Neck: Normal Inspection, Supple, Non-Tender, Full Range of Motion Respiratory/Chest: No Respiratory Distress, Lungs Clear, Normal Breath Sounds, No Accessory Muscle Use, Chest Non-Tender Cardiovascular: Normal Peripheral Pulses, Regular Rate, Rhythm, No Edema, No Gallop, No JVD, No Murmur, No Rub GI/Abdominal: Normal Bowel Sounds, Soft, Non-Tender, No Distention Back Exam: Normal Inspection Extremities: Normal Inspection, Normal Range of Motion, Non-Tender, Normal Capillary Refill, No Pedal Edema Neurological: Alert, Oriented, CN II-XII Intact, Normal Cognition, Normal Gait, No Motor/Sensory Deficits Psychiatric: Anxious Skin Exam: Warm, Dry, Intact, Normal Color, No Rash EKG INTERPRETATION EKG Date: 08/18/17 Time: 12:08 Rhythm: Other (SR) Rate (Beats/Min): 71 [place]: Normal P-Wave: Present QRS: Other (1st degree AVB) ST-T: Other (Nonspecific T-wave abnl. in lateral leads) QT: Normal Comparison: NA - No Prior EKG Course - Vital Signs Last Recorded V/S: Last Vital Signs Temp 36.5 C 08/18/17 12:08 Pulse 72 08/18/17 12:08 Resp 18 08/18/17 12:08 BP 137/70 08/18/17 12:08 Pulse Ox 98 08/18/17 12:08 - Orders/Labs/Meds Orders: Active Orders 24 hr Category Date Time Status EKG 12 Lead [EKG Documentation Completion] [RC] STAT Care 08/18/17 12:10 Peripheral IV Care [RC] . DIRECTED Care 08/18/17 12:10 Chest 1V Frontal [CR] Stat Exams 08/18/17 12:10 Ordered Sodium Chloride 0.9% [Saline Flush] Med 08/18/17 12:09 Active 10 ml FLUSH ASDIRECTED PRN Peripheral IV Insertion Adult [OM.PC] Stat Oth 08/18/17 12:10 Ordered Medication Orders Sodium Chloride (Saline Flush) 10 ml FLUSH ASDIRECTED PRN PRN Reason: Keep Vein Open Last Admin: 08/18/17 12:28 Dose: 10 ml Labs: Laboratory Tests 08/18/17 08/18/17 08/18/17 Range/Units 12:20 12:20 12:20 WBC 8.1 (5.0-10.0) 10^3/uL RBC 3.96 L (4.6-6.2) 10^6/uL Hgb 12.2 L (14.0-18.0) g/dL Hct 35.8 L (40.0-54.0) % MCV 90.4 (80-100) fL MCH 30.8 (27.0-34.0) pg MCHC 34.1 (33.0-35.0) g/dL Plt Count 258 (150-450) 10^3/uL Neut % (Auto) 59.3 (42.2-75.2) % Lymph % (Auto) 27.5 (20.5-50.1) % [place] % (Auto) 9.4 H (2-8) % Eos % (Auto) 3.2 H (1.0-3.0) % Baso % (Auto) 0.6 (0.0-1.0) % PT 10.1 (9.0-12.0) SEC INR 1.0 (0.9-1.2) APTT 25.5 (22.0-34.0) SEC Sodium 141 (135-145) mmol/L Potassium 4.0 (3.6-5.0) mmol/L Chloride 105 (101-111) mmol/L Carbon Dioxide 25.0 (21.0-31.0) mmol/L Anion Gap 15.0 BUN 17 (7-18) mg/dL Creatinine 1.0 (0.6-1.3) mg/dL Est Cr Clr Drug Dosing 77.60 mL/min Estimated GFR (MDRD) > 60 BUN/Creatinine Ratio 17.00 Glucose 181 H (74-105) mg/dL Calcium 9.1 (8.4-10.2) mg/dl Total Bilirubin 0.6 (0.2-1.0) mg/dL AST 25 (10-42) IU/L ALT 18 (10-60) IU/L Alkaline Phosphatase 57 (42-121) IU/L Troponin I < 0.02 (0.00-0.02) ng/ml B-Natriuretic Peptide 99 (0-100) pg/ml Total Protein 7.0 (6.7-8.2) g/dl Albumin 4.2 (3.2-5.5) g/dl Globulin 2.8 Albumin/Globulin Ratio 1.50 Meds: Medications Generic Name Dose Route Start Last Admin Trade Name Freq PRN Reason Stop Dose Admin Sodium Chloride 10 ml 08/18/17 12:09 08/18/17 12:28 Saline Flush FLUSH 10 ml ASDIRECTED PRN Administration Keep Vein Open - Radiology Interpretation Free Text/Narrative:: CXR: no acute process. Departure - Departure Time of Disposition: 13:20 Disposition: Home, Self-Care 01 Condition: Good Clinical Impression: Non-cardiac chest pain, Atypical chest pain Instructions: Nonspecific Chest Pain, [id number] Forms: ED Department Discharge Additional Instructions: Follow up with [place] [facility] at the first available appointment for referral to cardiology. - My Orders Last 24 Hours: My Active Orders 08/18/17 12:09 Sodium Chloride 0.9% [Saline Flush] 10 ml FLUSH ASDIRECTED PRN 08/18/17 12:10 EKG 12 Lead [EKG Documentation Completion] [RC] STAT Peripheral IV Care [RC] . DIRECTED Chest 1V Frontal [CR] Stat Peripheral IV Insertion Adult [OM.PC] Stat - Assessment/Plan Last 24 Hours: My Active Orders 08/18/17 12:09 Sodium Chloride 0.9% [Saline Flush] 10 ml FLUSH ASDIRECTED PRN 08/18/17 12:10 EKG 12 Lead [EKG Documentation Completion] [RC] STAT Peripheral IV Care [RC] . DIRECTED Chest 1V Frontal [CR] Stat Peripheral IV Insertion Adult [OM.PC] Stat
[2017-08-18 12:16] VITALS: BP 137/70
[2017-08-18 12:51] LABS: CHLORIDE,CL 105 mmol/L (101-111); SODIUM,NA 141 mmol/L (135-145)
--- NOTE | 2017-08-18 13:54 | CR ---
Clinical history: 66-year-old male chest pain. Interpretation: Upright AP portable chest film unremarkable. Normal cardiac silhouette without cephalization of flow, signs of alveolar edema or dependent effusio n (sternotomy wires). No new lung mass, hilar lymphadenopathy or focal lobar pneumonia when compared 05 August 2017 exam. No Pneumothorax. CONCLUSION: No acute new cardiopulmonary abnormality.
--- NOTE | 2017-08-20 18:59 | EKG ---
08/18/2017 - JULY SEPULVEDA - Mark reviewed the EKG and agree with the machine's reading. [facility] /[id number]
== END 2017-08-18 13:30 | disposition home or self-care (01) ==
LOC: DL.ED 12:08
DX: R07.89 Other chest pain (principal); I10 Essential (primary) hypertension; K21.9 Gastro-esophageal reflux disease without esophagitis; E11.9 Type 2 diabetes mellitus without complications; Z88.8 Allergy status to other drugs, medicaments and biological substances; Z79.899 Other long term (current) drug therapy
CPT/HCPCS: 36415; 71045; 80053; 83880; 84484; 85025; 85610; 85730; 93005; 93010; 99285; J7050

== ENCOUNTER 2017-08-23 07:05 | Emergency (ER) | payer OTHER ==
--- NOTE | 2017-08-23 07:29 | EDM.PDOC ---
ED HPI GENERAL MEDICAL PROBLEM - General Chief Complaint: Abdominal Pain Stated Complaint: IN BY AMBULANCE Time Seen by Provider: 08/23/17 07:28 Source of Information: Reports: Patient History Limitations: Reports: No Limitations - History of Present Illness INITIAL COMMENTS - FREE TEXT/NARRATIVE: Patient complains of progressively worsening left-sided abdominal pain. Patient notes no oral intake since yesterday. No fever chills. Feels bloated at times. Past history of renal colic. No blood in his urine. Denies chest pain or shortness of breath. Abdominal pain is better with sitting up. Does not notice difference between improvement with eating or drinking or an empty stomach. Denies right-sided symptoms. No vomiting. No chest pressure palpitations. No lumbar back pain. Onset: Gradual Duration: Day(s): Location: Reports: Abdomen Quality: Reports: Ache, Sharp Severity: Moderate Improves with: Reports: None Worsens with: Reports: Movement Associated Symptoms: Reports: Loss of Appetite. Denies: Diaphoresis, Fever/ Chills, Nausea/Vomiting, Rash Left Flank Pain Score (Numeric/FACES): 9 - Related Data Allergies Allergy/AdvReac Type Severity Reaction Status Date / Time prednisone Allergy Cannot Verified 08/23/17 07:18 Remember Home Meds: Home Meds metFORMIN HCl [Metformin HCl] 1,000 mg PO BID 05/02/14 [History] Insulin Glargine,Hum.Rec.Anlog [Lantus Solostar] 90 units INJECT BEDTIME [History] Metoprolol Tartrate 75 mg PO BID 04/03/16 [History] Niacin 1,000 mg PO BID 04/03/16 [History] Omeprazole 20 mg PO BEDTIME 04/03/16 [History] Aspirin 325 mg PO DAILY 10/01/16 [History] Amiodarone HCl [Pacerone] 1 tab PO DAILY 11/15/16 [History] Past Medical History HEENT History: Reports: Cataract, Other (See Below) Other HEENT History: legally blind Cardiovascular History: Reports: Angina, CAD, High Cholesterol, Hypertension, Stents Respiratory History: Reports: None Gastrointestinal History: Reports: GERD Genitourinary History: Reports: Renal Calculus Musculoskeletal History: Reports: None Neurological History: Reports: Other (See Below) 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 Psychiatric History: Reports: None Endocrine/Metabolic History: Reports: Diabetes, Type II Hematologic History: Reports: None Immunologic History: Reports: None Oncologic (Cancer) History: Reports: None Dermatologic History: Reports: None - Infectious Disease History Infectious Disease History: Reports: Chicken Pox, Measles, Mumps - Past Surgical History HEENT Surgical History: Reports: Cataract Surgery Cardiovascular Surgical History: Reports: Coronary Artery Bypass, Coronary Artery Stent Respiratory Surgical History: Reports: None Male Surgical History: Reports: None Musculoskeletal Surgical History: Reports: Arthroscopic Knee, Other (See Below) Other Musculoskeletal Surgeries/Procedures:: ulna relocation Social & Family History - Family History Family Medical History: Noncontributory - Tobacco Use Smoking Status *Q: Never Smoker Second Hand Smoke Exposure: No - Caffeine Use Caffeine Use: Reports: Coffee, Soda - Recreational Drug Use Recreational Drug Use: No - Living Situation & Occupation Living situation: Reports: Occupation: Retired ED ROS GENERAL - Review of Systems Review Of Systems: See Below Constitutional: Reports: No Symptoms HEENT: Reports: No Symptoms Respiratory: Reports: No Symptoms Cardiovascular: Reports: No Symptoms Endocrine: Reports: No Symptoms GI/Abdominal: Reports: Abdominal Pain, Distension, Nausea. Denies: Bloody Stool , Diarrhea, Difficulty Swallowing, Flatus, Stool Incontinence, Vomiting : Denies: Flank Pain, Hematuria, Incontinence Musculoskeletal: Reports: No Symptoms Skin: Reports: No Symptoms Neurological: Reports: No Symptoms Psychiatric: Reports: No Symptoms ED EXAM, GI/ABD - Physical Exam Exam: See Below Exam Limited By: No Limitations General Appearance: Alert, No Apparent Distress Ears: Normal External Exam Throat/Mouth: Normal Inspection, Normal Oropharynx Head: Atraumatic, Normocephalic Neck: Normal Inspection, Supple Respiratory/Chest: No Respiratory Distress, Lungs Clear, Normal Breath Sounds Cardiovascular: Normal Peripheral Pulses, Regular Rate, Rhythm, No Edema GI/Abdominal Exam: Soft, Guarding, Tender, Other (Pain to palpation left upper and lower quadrant. Mild guarding. Rebound tenderness.). No: Mass Extremities: Normal Range of Motion, No Pedal Edema Neurological: Alert, Oriented, CN II-XII Intact Psychiatric: Normal Affect Skin Exam: Warm, Dry Course - Vital Signs Last Recorded V/S: Last Vital Signs Temp 98.2 F 08/23/17 07:13 Pulse 71 08/23/17 07:13 Resp 16 08/23/17 07:13 BP 143/76 H 08/23/17 07:13 Pulse Ox 95 08/23/17 07:13 - Orders/Labs/Meds Orders: Active Orders 24 hr Category Date Time Status EKG Documentation Completion [RC] STAT Care 08/23/17 07:35 Active Peripheral IV Care [RC] . DIRECTED Care 08/23/17 07:38 Active Morphine Med 08/23/17 12:14 Once 4 mg IVPUSH ONETIME ONE Sodium Chloride 0.9% [Saline Flush] Med 08/23/17 07:35 Active 10 ml FLUSH ASDIRECTED PRN Peripheral IV Insertion Adult [OM.PC] Routine Oth 08/23/17 07:35 Ordered Medication Orders Sodium Chloride (Saline Flush) 10 ml FLUSH ASDIRECTED PRN PRN Reason: Keep Vein Open Last Admin: 08/23/17 07:50 Dose: 10 ml Labs: Laboratory Tests 08/23/17 08/23/17 08/23/17 Range/Units 07:49 07:49 09:30 WBC 10.0 (5.0-10.0) 10^3/uL RBC 4.01 L (4.6-6.2) 10^6/uL Hgb 12.2 L (14.0-18.0) g/dL Hct 36.0 L (40.0-54.0) % MCV 89.8 (80-100) fL MCH 30.4 (27.0-34.0) pg MCHC 33.9 (33.0-35.0) g/dL Plt Count 255 (150-450) 10^3/uL Neut % (Auto) 76.0 H (42.2-75.2) % Lymph % (Auto) 14.6 L (20.5-50.1) % Divide % (Auto) 8.9 H (2-8) % Eos % (Auto) 0.3 L (1.0-3.0) % Baso % (Auto) 0.2 (0.0-1.0) % Sodium 137 (135-145) mmol/L Potassium 4.5 (3.6-5.0) mmol/L Chloride 102 (101-111) mmol/L Carbon Dioxide 26.0 (21.0-31.0) mmol/L Anion Gap 13.5 BUN 18 (7-18) mg/dL Creatinine 1.4 H (0.6-1.3) mg/dL Est Cr Clr Drug Dosing 55.43 mL/min Estimated GFR (MDRD) 50 BUN/Creatinine Ratio 12.85 Glucose 181 H (74-105) mg/dL Calcium 9.1 (8.4-10.2) mg/dl Total Bilirubin 0.7 (0.2-1.0) mg/dL AST 24 (10-42) IU/L ALT 17 (10-60) IU/L Alkaline Phosphatase 67 (42-121) IU/L Troponin I < 0.02 (0.00-0.02) ng/ml Total Protein 6.9 (6.7-8.2) g/dl Albumin 4.2 (3.2-5.5) g/dl Globulin 2.7 Albumin/Globulin Ratio 1.56 Amylase 45 (28-100) U/L Lipase < 10 L (22-51) U/L Urine Color Yellow (YELLOW) Urine Appearance Slightly cloudy (CLEAR) Urine pH 5.0 (5.0-9.0) Ur Specific [place] 1.015 (1.005-1.030) Urine Protein 30 H (NEGATIVE) Urine Glucose (UA) 100 H (NEGATIVE) Urine Ketones Trace H (NEGATIVE) Urine Occult Blood Trace-intact H (NEGATIVE) Urine Nitrite Negative (NEGATIVE) Urine Bilirubin Negative (NEGATIVE) Urine Urobilinogen 0.2 (0.2-1.0) mg/dL Ur Leukocyte Esterase Negative (NEGATIVE) Urine RBC 0-5 /HPF Urine WBC Not seen (0-5/HPF) /HPF Ur Epithelial Cells Rare /HPF Urine Mucus Moderate H /LPF Meds: Medications Generic Name Dose Route Start Last Admin Trade Name Freq PRN Reason Stop Dose Admin Sodium Chloride 10 ml 08/23/17 07:35 08/23/17 07:50 Saline Flush FLUSH 10 ml ASDIRECTED PRN Administration Keep Vein Open Discontinued Medications Generic Name Dose Route Start Last Admin Trade Name Freq PRN Reason Stop Dose Admin Hydromorphone HCl 0.5 mg 08/23/17 10:48 08/23/17 11:10 Dilaudid IVPUSH 08/23/17 10:49 0.5 mg ONETIME ONE Administration Sodium Chloride 1,000 mls @ 1,000 mls/hr 08/23/17 10:59 08/23/17 11:10 Normal Saline IV 08/23/17 11:58 1,000 mls/hr .BOLUS ONE Administration Iopamidol 75 ml 08/23/17 08:10 08/23/17 08:44 Isovue-300 (61%) IVPUSH 08/23/17 08:11 75 ml ONETIME ONE Administration Morphine Sulfate 4 mg 08/23/17 07:39 08/23/17 07:50 Morphine IVPUSH 08/23/17 07:40 4 mg ONETIME ONE Administration Ondansetron HCl 4 mg 08/23/17 07:55 08/23/17 08:01 Zofran IV 08/23/17 07:56 4 mg ONETIME ONE Administration - Re-Assessments/Exams Free Text/Narrative Re-Assessment/Exam: CT scan of the abdomen and pelvis shows a 6 mm obstructing stone left mid ureter. Patient has diverticulosis nonactive at this time. No other abnormalities are noted. Urologist was consulted and case reviewed. Management is to discharge to home with instructions to drink plenty of fluids monitor urine and medications for pain. He will follow up on Friday with urology 08/23/17 12:07 Free Text/Narrative Re-Assessment/Exam: Patient is at extended stay to receive his IV fluids. Patient requests morphine even with the known nausea response. Patient will receive 4 mg morphine IV 08/23/17 12:14 Departure - Departure Time of Disposition: 12:03 Disposition: Home, Self-Care 01 Condition: Fair Clinical Impression: Nephrolithiasis - Discharge Information Instructions: Kidney Stones, [id number], Pain Medicine Instructions, Easy-to- Read Forms: ED Department Discharge Additional Instructions: Drink plenty of fluids and utilize pain medication. Follow instructions in regards to not taking metformin since you received IV contrast. Call urologists in [place] on Friday. Call or return to the ER if any problems questions or concerns - My Orders Last 24 Hours: My Active Orders 08/23/17 07:35 EKG Documentation Completion [RC] STAT Sodium Chloride 0.9% [Saline Flush] 10 ml FLUSH ASDIRECTED PRN Peripheral IV Insertion Adult [OM.PC] Routine 08/23/17 07:38 Peripheral IV Care [RC] . DIRECTED 08/23/17 12:14 Morphine 4 mg IVPUSH ONETIME ONE - Assessment/Plan Last 24 Hours: My Active Orders 08/23/17 07:35 EKG Documentation Completion [RC] STAT Sodium Chloride 0.9% [Saline Flush] 10 ml FLUSH ASDIRECTED PRN Peripheral IV Insertion Adult [OM.PC] Routine 08/23/17 07:38 Peripheral IV Care [RC] . DIRECTED 08/23/17 12:14 Morphine 4 mg IVPUSH ONETIME ONE
[2017-08-23] MEDS ORDERED: Sodium Chloride 0.9% 10 ML Syringe FLUSH PRN (07:35)
[2017-08-23] MEDS ORDERED: Morphine 4 MG/ML Syringe IVPUSH ONE ×2 (07:39→12:14)
[2017-08-23] MEDS ORDERED: Ondansetron 4 MG/2 ML SDV IV ONE (07:55)
[2017-08-23] MEDS ORDERED: Iopamidol 612 MG/ML 75 ML Bottle IVPUSH ONE (08:10)
[2017-08-23 08:18] LABS: CHLORIDE,CL 102 mmol/L (101-111); SODIUM,NA 137 mmol/L (135-145)
--- NOTE | 2017-08-23 10:28 | CT ---
Clinical history: 66-year-old 190 pound diabetic male with left upper quadrant pain (history of "kidn ey stones") reported on previous CT scan 27 March 2016 to have "mild splenomegaly, marked descend ing/sigmoid colonic diverticulosis, large prostate, and nonobstructing bilateral nephrolithiasis". Re evaluate please. Scan technique: Volume acquisition of data from the abdomen and obtained without oral contrast but du ring/after (delayed 6 and 25 minute scans close breast intravenous administration of 75 cc nonionic I sovue contrast while patient was lying supine on the Siemens multi slice scanner [place], [place]. All data archived in the PACS system for storage, reformatting and study . Interpretation: Abnormal. 1. *Large 6 mm diameter oval calculus lodged in the mid left ureter with abnormal dilatation of the u reter proximally and now stopped ipsilateral pyelocaliectasis i.e. obstructing mid left ureterolith. Enlarged left kidney with perinephric "dirty" fat. 2. A second slightly smaller 5.8 mm calculus lower pole calyx of the left kidney. (Adjacent 1.6 cm co rtical cyst lower pole) 3. No calcifications contralateral right kidney and no current signs of obstructive uropathy on the r ight. 4. Gallbladder, liver, stomach, spleen, pancreas and adrenal glands anatomically correct i.e. unremar kable. 5. Dense Coronary artery calcifications. Normal caliber aortoiliac vessels. No aneurysm. Multilevel u pper and lower lumbar disc disease with chronic hypertrophic arthritic changes of the spine. Lung bas es clear. 6. Extensive diverticulosis without current signs of inflammation descending left and sigmoid colon. 7. No sign of pelvic/abdominal mass lesions, retroperitoneal lymphadenopathy, mechanical bowel obstru ction, ascites or free air. CONCLUSION: Diverticulosis colon. *Mid left ureterolith with high-grade ipsilateral proximal obstruction (nephrolithiasis left kidney).
[2017-08-23] MEDS ORDERED: HYDROmorphone 0.5 MG/0.5 ML Syringe IVPUSH ONE (10:48)
[2017-08-23] MEDS ORDERED: Sodium Chloride 0.9% 1,000 ML IV ONE ×2 (10:59→12:10)
[2017-08-23 13:06] VITALS: BP 149/68
== END 2017-08-23 13:08 | disposition home or self-care (01) ==
LOC: DL.ED 07:05
DX: N20.2 Calculus of kidney with calculus of ureter (principal); I10 Essential (primary) hypertension; I25.10 Atherosclerotic heart disease of native coronary artery without angina pectoris; E78.00 Pure hypercholesterolemia, unspecified; E11.9 Type 2 diabetes mellitus without complications; K21.9 Gastro-esophageal reflux disease without esophagitis; Z95.5 Presence of coronary angioplasty implant and graft; Z79.4 Long term (current) use of insulin; Z79.82 Long term (current) use of aspirin; Z79.899 Other long term (current) drug therapy; Z88.8 Allergy status to other drugs, medicaments and biological substances
CPT/HCPCS: 36415; 74177; 80053; 81001; 82150; 83690; 84484; 85025; 93005; 96361; 96374; 96375; 96376; 99285; J1170; J2270; J2405; J7030; J7050; Q9967; 93010

== ENCOUNTER 2017-08-24 14:42 | Emergency (ER) | payer OTHER ==
[2017-08-24] MEDS ORDERED: Morphine 10 MG/ML Syringe IVPUSH ONE (15:11)
[2017-08-24] MEDS ORDERED: Sodium Chloride 0.9% 1,000 ML IV ONE (15:11)
--- NOTE | 2017-08-24 15:11 | EDM.PDOC ---
ED HPI GENERAL MEDICAL PROBLEM - General Chief Complaint: Flank Pain Stated Complaint: GALLSTONE Time Seen by Provider: 08/24/17 15:30 Source of Information: Reports: Patient History Limitations: Reports: No Limitations - History of Present Illness INITIAL COMMENTS - FREE TEXT/NARRATIVE: Patient returns the emergency room again with complaint of left sided abdominal pain. Patient was in the emergency room yesterday with a workup revealing renal stone mid ureter with hydronephrosis. Patient's creatinine was mildly elevated at 1.4. He was afebrile with a normal white blood cell count. Urology and [place] was consult that with instructions for patient to follow up on Friday or return to the ER if worsening symptoms. Patient states that he throws up shortly after taking narcotic. Pain continues to be on the left side. Interestingly, patient stated complaint is gallbladder however he does not have any right-sided abdominal symptoms. He also states that he is concerned about appendicitis even though he has no right lower quadrant pain and tenderness and CT scan performed yesterday showed no evidence of gallbladder or appendix disease. Patient has diverticulosis noninflammatory at this time. Patient denies constipation or diarrhea. States that his oral intake is diminished because of pain nausea and vomiting While in the emergency room patient began complaining of substernal chest pressure pain radiating to the neck and left arm. He noted increased nausea feeling. The diaphoresis. States that this felt similar to previous MD before undergoing bypass surgery. Last episode was about 3 years ago. Workup is changed to acute onset of chest pain Onset: Today Duration: Day(s):, Constant, Getting Worse Location: Reports: Abdomen Quality: Reports: Ache, Sharp, Stabbing Severity: Moderate Improves with: Reports: None Worsens with: Reports: Movement Associated Symptoms: Reports: Loss of Appetite, Nausea/Vomiting Upper Abdomen Pain Score (Numeric/FACES): 7 - Related Data Allergies Allergy/AdvReac Type Severity Reaction Status Date / Time prednisone Allergy Cannot Verified 08/24/17 14:54 Remember Home Meds: Home Meds metFORMIN HCl [Metformin HCl] 1,000 mg PO BID 05/02/14 [History] Insulin Glargine,Hum.Rec.Anlog [Lantus Solostar] 90 units INJECT BEDTIME [History] Metoprolol Tartrate 75 mg PO BID 04/03/16 [History] Niacin 1,000 mg PO BID 04/03/16 [History] Omeprazole 20 mg PO BEDTIME 04/03/16 [History] Aspirin 325 mg PO DAILY 10/01/16 [History] Amiodarone HCl [Pacerone] 1 tab PO DAILY 11/15/16 [History] Past Medical History HEENT History: Reports: Cataract, Other (See Below) Other HEENT History: legally blind Cardiovascular History: Reports: Angina, CAD, High Cholesterol, Hypertension, Stents Respiratory History: Reports: None Gastrointestinal History: Reports: GERD Genitourinary History: Reports: Renal Calculus Musculoskeletal History: Reports: None Neurological History: Reports: Other (See Below) 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 Psychiatric History: Reports: None Endocrine/Metabolic History: Reports: Diabetes, Type II Hematologic History: Reports: None Immunologic History: Reports: None Oncologic (Cancer) History: Reports: None Dermatologic History: Reports: None - Infectious Disease History Infectious Disease History: Reports: Chicken Pox, Measles, Mumps - Past Surgical History HEENT Surgical History: Reports: Cataract Surgery Cardiovascular Surgical History: Reports: Coronary Artery Bypass, Coronary Artery Stent Respiratory Surgical History: Reports: None Male Surgical History: Reports: None Musculoskeletal Surgical History: Reports: Arthroscopic Knee, Other (See Below) Other Musculoskeletal Surgeries/Procedures:: ulna relocation Social & Family History - Family History Family Medical History: Noncontributory - Tobacco Use Smoking Status *Q: Never Smoker Second Hand Smoke Exposure: No - Caffeine Use Caffeine Use: Reports: Coffee - Recreational Drug Use Recreational Drug Use: No - Living Situation & Occupation Living situation: Reports: Occupation: Retired ED ROS GENERAL - Review of Systems Review Of Systems: ROS reveals no pertinent complaints other than HPI. ED EXAM, RENAL/ - Physical Exam Exam: See Below Exam Limited By: No Limitations General Appearance: Alert, WD/WN, No Apparent Distress Throat/Mouth: Normal Inspection, Normal Oropharynx Respiratory/Chest: No Respiratory Distress, Lungs Clear, Normal Breath Sounds Cardiovascular: Normal Peripheral Pulses, Regular Rate, Rhythm, No Murmur GI/Abdominal: Distended, Guarding, Rebound, Tender Back Exam: CVA Tenderness (L). No: CVA Tenderness (R) Extremities: Normal Inspection, Normal Capillary Refill Neurological: Alert, Oriented, CN II-XII Intact Skin Exam: Warm, Dry EKG INTERPRETATION EKG Interpretation Comments: EKG shows repolarization abnormalities anterior lateral leads Course - Vital Signs Last Recorded V/S: Last Vital Signs Temp 99.2 F 08/24/17 16:47 Pulse 90 08/24/17 16:27 Resp 16 08/24/17 14:47 BP 158/80 H 08/24/17 16:40 Pulse Ox 100 08/24/17 16:15 - Orders/Labs/Meds Orders: Active Orders 24 hr Category Date Time Status Cardiac Monitoring [RC] . DIRECTED Care 08/24/17 16:01 Active EKG Documentation Completion [RC] STAT Care 08/24/17 15:44 Active Oxygen Therapy [RC] PRN Care 08/24/17 16:01 Active Pulse Oximetry [RC] CONTINUOUS Care 08/24/17 16:01 Active UA W/MICROSCOPIC [URIN] Stat Lab 08/24/17 15:07 Ordered ED Antiemetic Medication Reflex [OM.PC] Stat Oth 08/24/17 16:01 Ordered ED GI Medications Reflex [OM.PC] Stat Oth 08/24/17 16:01 Ordered ED Pain Medications Reflex [OM.PC] Stat Oth 08/24/17 16:01 Ordered Labs: Laboratory Tests 08/24/17 08/24/17 08/24/17 Range/Units 15:16 15:16 15:17 WBC 13.3 H (5.0-10.0) 10^3/uL RBC 4.00 L (4.6-6.2) 10^6/uL Hgb 12.0 L (14.0-18.0) g/dL Hct 35.6 L (40.0-54.0) % MCV 89.0 (80-100) fL MCH 30.0 (27.0-34.0) pg MCHC 33.7 (33.0-35.0) g/dL Plt Count 216 (150-450) 10^3/uL Neut % (Auto) 82.2 H (42.2-75.2) % Lymph % (Auto) 8.0 L (20.5-50.1) % [place] % (Auto) 9.4 H (2-8) % Eos % (Auto) 0.2 L (1.0-3.0) % Baso % (Auto) 0.2 (0.0-1.0) % D-Dimer, Quantitative (0-400) ng/mL Sodium 137 (135-145) mmol/L Potassium 4.4 (3.6-5.0) mmol/L Chloride 101 (101-111) mmol/L Carbon Dioxide 27.0 (21.0-31.0) mmol/L Anion Gap 13.4 BUN 12 (7-18) mg/dL Creatinine 1.5 H (0.6-1.3) mg/dL Est Cr Clr Drug Dosing 51.73 mL/min Estimated GFR (MDRD) 47 BUN/Creatinine Ratio 8.00 Glucose 165 H (74-105) mg/dL Calcium 8.8 (8.4-10.2) mg/dl Total Bilirubin 1.0 (0.2-1.0) mg/dL AST 23 (10-42) IU/L ALT 15 (10-60) IU/L Alkaline Phosphatase 63 (42-121) IU/L Troponin I 0.03 H* (0.00-0.02) ng/ml Total Protein 7.1 (6.7-8.2) g/dl Albumin 4.1 (3.2-5.5) g/dl Globulin 3.0 Albumin/Globulin Ratio 1.37 Amylase (28-100) U/L 08/24/17 08/24/17 Range/Units 15:17 15:17 WBC (5.0-10.0) 10^3/uL RBC (4.6-6.2) 10^6/uL Hgb (14.0-18.0) g/dL Hct (40.0-54.0) % MCV (80-100) fL MCH (27.0-34.0) pg MCHC (33.0-35.0) g/dL Plt Count (150-450) 10^3/uL Neut % (Auto) (42.2-75.2) % Lymph % (Auto) (20.5-50.1) % [place] % (Auto) (2-8) % Eos % (Auto) (1.0-3.0) % Baso % (Auto) (0.0-1.0) % D-Dimer, Quantitative 339 (0-400) ng/mL Sodium (135-145) mmol/L Potassium (3.6-5.0) mmol/L Chloride (101-111) mmol/L Carbon Dioxide (21.0-31.0) mmol/L Anion Gap BUN (7-18) mg/dL Creatinine (0.6-1.3) mg/dL Est Cr Clr Drug Dosing mL/min Estimated GFR (MDRD) BUN/Creatinine Ratio Glucose (74-105) mg/dL Calcium (8.4-10.2) mg/dl Total Bilirubin (0.2-1.0) mg/dL AST (10-42) IU/L ALT (10-60) IU/L Alkaline Phosphatase (42-121) IU/L Troponin I (0.00-0.02) ng/ml Total Protein (6.7-8.2) g/dl Albumin (3.2-5.5) g/dl Globulin Albumin/Globulin Ratio Amylase 43 (28-100) U/L Meds: Medications Discontinued Medications Generic Name Dose Route Start Last Admin Trade Name Freq PRN Reason Stop Dose Admin Aspirin 324 mg 08/24/17 16:01 08/24/17 16:24 Aspirin PO 08/24/17 16:02 Not Given ONETIME ONE Sodium Chloride 1,000 mls @ 1,000 mls/hr 08/24/17 15:11 08/24/17 15:25 Normal Saline IV 08/24/17 16:10 1,000 mls/hr .BOLUS ONE Administration Metoprolol Tartrate 5 mg 08/24/17 16:16 08/24/17 16:27 Lopressor IVPUSH 08/24/17 16:17 5 mg ONETIME ONE Administration Morphine Sulfate 5 mg 08/24/17 15:11 08/24/17 15:24 Morphine IVPUSH 08/24/17 15:12 5 mg ONETIME ONE Administration Nitroglycerin 0.4 mg 08/24/17 16:29 08/24/17 16:40 Nitrostat SL 08/24/17 16:30 0.4 mg ONETIME ONE Administration Ondansetron HCl 4 mg 08/24/17 15:17 08/24/17 15:24 Zofran IV 08/24/17 15:18 4 mg ONETIME ONE Administration - Re-Assessments/Exams Free Text/Narrative Re-Assessment/Exam: IV access obtained. Patient still has some substernal discomfort but does not appear to be in obvious distress. Consultation with [place] reviewed and patient will be transferred 08/24/17 16:35 Departure - Departure Time of Disposition: 16:37 Disposition: DC/Tfer to Acute Hospital 02 Condition: Fair Clinical Impression: Non-STEMI (non-ST elevated myocardial infarction), Nephrolithiasis Chest pain Qualifiers: Chest pain type: unspecified Qualified Code(s): R07.9 - Chest pain, unspecified - Discharge Information Referrals: PCP,Unobtain [Primary Care Provider] - Forms: ED Department Discharge - My Orders Last 24 Hours: My Active Orders 08/24/17 15:07 UA W/MICROSCOPIC [URIN] Stat 08/24/17 15:44 EKG Documentation Completion [RC] STAT 08/24/17 16:01 Cardiac Monitoring [RC] . DIRECTED Oxygen Therapy [RC] PRN Pulse Oximetry [RC] CONTINUOUS ED Antiemetic Medication Reflex [OM.PC] Stat ED GI Medications Reflex [OM.PC] Stat ED Pain Medications Reflex [OM.PC] Stat - Assessment/Plan Last 24 Hours: My Active Orders 08/24/17 15:07 UA W/MICROSCOPIC [URIN] Stat 08/24/17 15:44 EKG Documentation Completion [RC] STAT 08/24/17 16:01 Cardiac Monitoring [RC] . DIRECTED Oxygen Therapy [RC] PRN Pulse Oximetry [RC] CONTINUOUS ED Antiemetic Medication Reflex [OM.PC] Stat ED GI Medications Reflex [OM.PC] Stat ED Pain Medications Reflex [OM.PC] Stat
[2017-08-24] MEDS ORDERED: Ondansetron 4 MG/2 ML SDV IV ONE (15:17)
[2017-08-24] MEDS ORDERED: Aspirin 81 MG Tab.Chew PO ONE (16:01)
[2017-08-24] MEDS ORDERED: Metoprolol Tartrate 5 MG/5 ML SDV IVPUSH ONE (16:16)
[2017-08-24] MEDS ORDERED: Nitroglycerin 0.4 MG Tab.SL SL ONE (16:29)
[2017-08-24 16:41] VITALS: BP 158/80
== END 2017-08-24 17:07 ==
LOC: DL.ED 14:42
DX: I21.4 Non-ST elevation (NSTEMI) myocardial infarction (principal); N13.2 Hydronephrosis with renal and ureteral calculous obstruction; I10 Essential (primary) hypertension; I25.119 Atherosclerotic heart disease of native coronary artery with unspecified angina pectoris; E78.00 Pure hypercholesterolemia, unspecified; K21.9 Gastro-esophageal reflux disease without esophagitis; E11.9 Type 2 diabetes mellitus without complications; Z95.1 Presence of aortocoronary bypass graft; Z95.5 Presence of coronary angioplasty implant and graft; Z79.4 Long term (current) use of insulin; Z79.82 Long term (current) use of aspirin; Z79.899 Other long term (current) drug therapy; Z88.8 Allergy status to other drugs, medicaments and biological substances
CPT/HCPCS: 36415; 71046; 74176; 80053; 82150; 84484; 85025; 85379; 93005; 94762; 96361; 96374; 96375; 99285; A9270; J2270; J2405; J7030; 93010; J3490

== ENCOUNTER 2017-12-10 19:07 | Emergency (ER) | payer OTHER ==
[2017-12-10 19:21] VITALS: BP 141/89
--- NOTE | 2017-12-10 19:51 | EDM.PDOC ---
ED HPI GENERAL MEDICAL PROBLEM - General Chief Complaint: General Stated Complaint: WEAKNESS Time Seen by Provider: 12/10/17 19:48 Source of Information: Reports: Patient History Limitations: Reports: No Limitations - History of Present Illness INITIAL COMMENTS - FREE TEXT/NARRATIVE: states past 4 days of not feeling himself. no appetite not eating denies N/V/D, no CP. no F/C. but has large red painful swelling right side face and ear. Bilateral Back Pain Score (Numeric/FACES): 8 - Related Data Allergies Allergy/AdvReac Type Severity Reaction Status Date / Time prednisone Allergy Cannot Verified 12/10/17 19:21 Remember Home Meds: Home Meds metFORMIN HCl [Metformin HCl] 1,000 mg PO BID 05/02/14 [History] Insulin Glargine,Hum.Rec.Anlog [Lantus Solostar] 90 units INJECT BEDTIME [History] Metoprolol Tartrate 75 mg PO BID 04/03/16 [History] Niacin 1,000 mg PO BID 04/03/16 [History] Omeprazole 20 mg PO BEDTIME 04/03/16 [History] Aspirin 325 mg PO DAILY 10/01/16 [History] Amiodarone HCl [Pacerone] 1 tab PO DAILY 11/15/16 [History] Past Medical History HEENT History: Reports: Cataract, Other (See Below) Other HEENT History: legally blind Cardiovascular History: Reports: Angina, Bypass, CAD, High Cholesterol, Hypertension, [place], Stents Respiratory History: Reports: None Gastrointestinal History: Reports: GERD Genitourinary History: Reports: Renal Calculus Musculoskeletal History: Reports: None Neurological History: Reports: Other (See Below) 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 Psychiatric History: Reports: None Endocrine/Metabolic History: Reports: Diabetes, Type II Hematologic History: Reports: None Immunologic History: Reports: None Oncologic (Cancer) History: Reports: None Dermatologic History: Reports: None - Infectious Disease History Infectious Disease History: Reports: Chicken Pox, Measles, Mumps - Past Surgical History HEENT Surgical History: Reports: Cataract Surgery Cardiovascular Surgical History: Reports: Coronary Artery Bypass, Coronary Artery Stent Respiratory Surgical History: Reports: None Male Surgical History: Reports: None Musculoskeletal Surgical History: Reports: Arthroscopic Knee, Other (See Below) Other Musculoskeletal Surgeries/Procedures:: ulna relocation Social & Family History - Family History Family Medical History: Noncontributory - Tobacco Use Smoking Status *Q: Unknown Ever Smoked Second Hand Smoke Exposure: No - Caffeine Use Caffeine Use: Reports: Coffee - Recreational Drug Use Recreational Drug Use: No - Living Situation & Occupation Living situation: Reports: Occupation: Retired ED ROS GENERAL - Review of Systems Review Of Systems: ROS reveals no pertinent complaints other than HPI. ED EXAM, GENERAL - Physical Exam Exam: See Below Exam Limited By: No Limitations General Appearance: Alert, WD/WN, No Apparent Distress Eye Exam: Bilateral Eye: PERRL (pupils ess ER @ 4mm) Ears: Hearing Grossly Normal Ear Exam: Right Ear: Other (cellulitis right ear and cheek) Throat/Mouth: Normal Voice, No Airway Compromise Head: Atraumatic Neck: Non-Tender, Full Range of Motion Respiratory/Chest: No Respiratory Distress Cardiovascular: Regular Rate, Rhythm GI/Abdominal: Soft, Non-Tender Neurological: Alert, Oriented, Normal Cognition, Normal Gait, No Motor/Sensory Deficits Psychiatric: Flat Affect Skin Exam: Warm, Dry, Normal Color Lymphatic: No Adenopathy Course - Vital Signs Last Recorded V/S: Last Vital Signs Temp 37.8 C 12/10/17 19:20 Pulse 80 12/10/17 19:20 Resp 16 12/10/17 19:20 BP 141/89 H 12/10/17 19:20 Pulse Ox 96 12/10/17 19:20 - Orders/Labs/Meds Orders: Active Orders 24 hr Category Date Time Status EKG Documentation Completion [RC] URGENT Care 12/10/17 19:19 Active Labs: Laboratory Tests 12/10/17 12/10/17 12/10/17 Range/Units 19:15 19:15 20:00 WBC 10.3 H (5.0-10.0) 10^3/uL RBC 4.42 L (4.6-6.2) 10^6/uL Hgb 13.3 L (14.0-18.0) g/dL Hct 39.0 L (40.0-54.0) % MCV 88.2 (80-100) fL MCH 30.1 (27.0-34.0) pg MCHC 34.1 (33.0-35.0) g/dL Plt Count 204 (150-450) 10^3/uL Neut % (Auto) 77.2 H (42.2-75.2) % Lymph % (Auto) 11.8 L (20.5-50.1) % [place] % (Auto) 10.6 H (2-8) % Eos % (Auto) 0.1 L (1.0-3.0) % Baso % (Auto) 0.3 (0.0-1.0) % Sodium 133 L (135-145) mmol/L Potassium 3.6 (3.6-5.0) mmol/L Chloride 97 L (101-111) mmol/L Carbon Dioxide 25.0 (21.0-31.0) mmol/L Anion Gap 14.6 BUN 18 (7-18) mg/dL Creatinine 1.1 (0.6-1.3) mg/dL Est Cr Clr Drug Dosing 69.57 mL/min Estimated GFR (MDRD) > 60 BUN/Creatinine Ratio 16.36 Glucose 178 H (74-105) mg/dL Lactic Acid 1.3 (0.5-2.2) mmol/L Calcium 9.1 (8.4-10.2) mg/dl Total Bilirubin 0.8 (0.2-1.0) mg/dL AST 21 (10-42) IU/L ALT 17 (10-60) IU/L Alkaline Phosphatase 64 (42-121) IU/L Troponin I 0.02 (0.00-0.02) ng/ml Total Protein 8.1 (6.7-8.2) g/dl Albumin 4.4 (3.2-5.5) g/dl Globulin 3.7 Albumin/Globulin Ratio 1.19 Meds: Medications Discontinued Medications Generic Name Dose Route Start Last Admin Trade Name Freq PRN Reason Stop Dose Admin Clindamycin Phosphate 900 mg/ 106 mls @ 200 mls/hr 12/10/17 21:16 12/10/17 21 :34 Sodium Chloride IV 12/10/17 21:47 200 mls/hr ONETIME ONE Administration - Re-Assessments/Exams Free Text/Narrative Re-Assessment/Exam: 12/10/17 22:30 re-exam s/p IV clindamycin = much better with decrease erythema Departure - Departure Time of Disposition: 22:30 Disposition: Home, Self-Care 01 Condition: Good Clinical Impression: Cellulitis of auricle of right ear - Discharge Information Instructions: Cellulitis, Adult, [id number] Forms: ED Department Discharge Additional Instructions: 1) heat compress to area 2) recheck if looks worse rx given; clindamycin 150mg qid x 40 - My Orders Last 24 Hours: My Active Orders 12/10/17 19:19 EKG Documentation Completion [RC] URGENT - Assessment/Plan Last 24 Hours: My Active Orders 12/10/17 19:19 EKG Documentation Completion [RC] URGENT
[2017-12-10 20:07] LABS: CHLORIDE,CL 97 mmol/L (101-111); SODIUM,NA 133 mmol/L (135-145)
[2017-12-10] MEDS ORDERED: Clindamycin Phosphate 900 MG in Sodium Chloride 0.9% 100 ML IV ONE (21:16)
== END 2017-12-10 22:40 | disposition home or self-care (01) ==
LOC: DL.ED 19:07
DX: H60.11 Cellulitis of right external ear (principal); Z88.8 Allergy status to other drugs, medicaments and biological substances; Z79.82 Long term (current) use of aspirin
CPT/HCPCS: 36415; 70450; 71045; 80053; 83605; 84484; 85025; 93005; 93010; 96365; 99285; J7050; 99283; S0077

== ENCOUNTER 2018-08-11 11:04 | Emergency (ER) | payer OTHER ==
[2018-08-11] MEDS ORDERED: Sodium Chloride 0.9% 10 ML Syringe FLUSH PRN (11:06)
--- NOTE | 2018-08-11 11:06 | EDM.PDOC ---
ED HPI GENERAL MEDICAL PROBLEM - General Chief Complaint: Chest Pain Stated Complaint: AMBULANCE Time Seen by Provider: 08/11/18 11:05 Source of Information: Reports: Patient, EMS, Old Records, RN, RN Notes Reviewed History Limitations: Reports: No Limitations - History of Present Illness INITIAL COMMENTS - FREE TEXT/NARRATIVE: Pt arrives to ER by [facility] from the [facility] where he had gone to have breakfast. He states he felt well earlier this morning and ate a large breakfast. Approx. 1 hour [employer] he developed severe pressure and aching in the chest which radiated to the jaw and down the left arm. He reports feeling short of breath, lightheaded, and nauseated as well. He took Nitroglycerin 0.4mg SL x3 doses without much relief, then called 911. He denies abdominal pain, cough, hemoptysis, edema, palpitations, or orthopnea. He reports Hx of CAD s/p stents and in 2016 CABG as well. Onset: Today Duration: Constant Location: Reports: Chest, Radiates to (jaw and left arm) Quality: Reports: Ache, Pressure Severity: Severe Improves with: Reports: None Worsens with: Reports: None Treatments [employer]: Reports: IV/IO, Nitroglycerin Anterior Chest Pain Score (Numeric/FACES): 8 - Related Data Allergies Allergy/AdvReac Type Severity Reaction Status Date / Time prednisone Allergy Cannot Verified 12/10/17 19:21 Remember Home Meds: Home Meds metFORMIN HCl [Metformin HCl] 1,000 mg PO BID 05/02/14 [History] Insulin Glargine,Hum.Rec.Anlog [Lantus Solostar] 90 units INJECT BEDTIME [History] Metoprolol Tartrate 75 mg PO BID 04/03/16 [History] Niacin 1,000 mg PO BID 04/03/16 [History] Omeprazole 20 mg PO BEDTIME 04/03/16 [History] Aspirin 325 mg PO DAILY 10/01/16 [History] Amiodarone HCl [Pacerone] 1 tab PO DAILY 11/15/16 [History] Past Medical History HEENT History: Reports: Cataract, Other (See Below) Other HEENT History: legally blind Cardiovascular History: Reports: Angina, Bypass, CAD, High Cholesterol, Hypertension, [place], Stents Respiratory History: Reports: None Gastrointestinal History: Reports: GERD Genitourinary History: Reports: Renal Calculus Musculoskeletal History: Reports: None Neurological History: Reports: Other (See Below) 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 Psychiatric History: Reports: None Endocrine/Metabolic History: Reports: Diabetes, Type II Hematologic History: Reports: None Immunologic History: Reports: None Oncologic (Cancer) History: Reports: None Dermatologic History: Reports: None - Infectious Disease History Infectious Disease History: Reports: Chicken Pox, Measles, Mumps - Past Surgical History HEENT Surgical History: Reports: Cataract Surgery Cardiovascular Surgical History: Reports: Coronary Artery Bypass, Coronary Artery Stent Respiratory Surgical History: Reports: None Male Surgical History: Reports: None Musculoskeletal Surgical History: Reports: Arthroscopic Knee, Other (See Below) Other Musculoskeletal Surgeries/Procedures:: ulna relocation Social & Family History - Family History Family Medical History: Noncontributory - Caffeine Use Caffeine Use: Reports: Coffee - Living Situation & Occupation Living situation: Reports: Occupation: Retired ED ROS GENERAL - Review of Systems Review Of Systems: ROS reveals no pertinent complaints other than HPI. ED EXAM, GENERAL - Physical Exam Exam: See Below Exam Limited By: No Limitations General Appearance: Alert, WD/WN, No Apparent Distress, Anxious Eye Exam: Bilateral Eye: Normal Inspection Nose: Normal Inspection, Normal Mucosa, No Blood Throat/Mouth: Normal Inspection, Normal Lips, Normal Teeth, Normal Gums, Normal Oropharynx, Normal Voice, No Airway Compromise Head: Atraumatic, Normocephalic Neck: Normal Inspection, Supple, Non-Tender, Full Range of Motion Respiratory/Chest: No Respiratory Distress, Lungs Clear, Normal Breath Sounds, No Accessory Muscle Use, Chest Non-Tender Cardiovascular: Normal Peripheral Pulses, Regular Rate, Rhythm, No Edema, No Gallop, No JVD, No Murmur, No Rub GI/Abdominal: Normal Bowel Sounds, Soft, Non-Tender, No Organomegaly, No Distention, No Abnormal Bruit, No Mass (Male) Exam: Deferred Rectal (Males) Exam: Deferred Back Exam: Normal Inspection, Decreased Range of Motion (Chronic/stable) Extremities: Normal Inspection, Normal Range of Motion, Non-Tender, Normal Capillary Refill, No Pedal Edema Neurological: Alert, Oriented, CN II-XII Intact, Normal Cognition, No Motor/ Sensory Deficits Psychiatric: Normal Affect, Anxious Skin Exam: Warm, Dry, Intact, No Rash, Pallor EKG INTERPRETATION EKG Date: 08/11/18 Time: 11:09 Rhythm: Other (Sinus danielle) Rate (Beats/Min): 53 [place]: Normal P-Wave: Present QRS: Normal ST-T: Other (Borderline repol. abnormality Ant-Lat. leads) QT: Normal NC/PQ Interval: 1st degree AVB Comparison: No Change EKG Interpretation Comments: No acute ischemic changes. Course - Vital Signs Last Recorded V/S: Last Vital Signs Temp 35.9 C 08/11/18 11:04 Pulse 60 08/11/18 11:04 Resp 15 08/11/18 11:04 BP 149/79 H 08/11/18 11:04 Pulse Ox 100 08/11/18 11:04 - Orders/Labs/Meds Orders: Active Orders 24 hr Category Date Time Status EKG 12 Lead [EKG Documentation Completion] [] STAT Care 08/11/18 11:06 Active Peripheral IV Care [RC] . DIRECTED Care 08/11/18 11:06 Active Sodium Chloride 0.9% [Saline Flush] Med 08/11/18 11:06 Active 10 ml FLUSH ASDIRECTED PRN Peripheral IV Insertion Adult [OM.PC] Stat Oth 08/11/18 11:06 Ordered Medication Orders Sodium Chloride (Saline Flush) 10 ml FLUSH ASDIRECTED PRN PRN Reason: Keep Vein Open Last Admin: 08/11/18 11:10 Dose: 10 ml Labs: Laboratory Tests 08/11/18 08/11/18 08/11/18 Range/Units 11:12 11:12 11:12 WBC 7.4 (5.0-10.0) 10^3/uL RBC 4.33 L (4.6-6.2) 10^6/uL Hgb 13.1 L (14.0-18.0) g/dL Hct 38.0 L (40.0-54.0) % MCV 87.8 (80-100) fL MCH 30.3 (27.0-34.0) pg MCHC 34.5 (33.0-35.0) g/dL Plt Count 297 D (150-450) 10^3/uL Neut % (Auto) 56.1 (42.2-75.2) % Lymph % (Auto) 30.5 (20.5-50.1) % [place] % (Auto) 9.8 H (2-8) % Eos % (Auto) 3.1 H (1.0-3.0) % Baso % (Auto) 0.5 (0.0-1.0) % PT 9.9 (9.0-12.0) SEC INR 1.0 (0.9-1.2) APTT 22.6 (22.0-34.0) SEC Sodium 136 (135-145) mmol/L Potassium 5.3 H D (3.6-5.0) mmol/L Chloride 99 L (101-111) mmol/L Carbon Dioxide 24.0 (21.0-31.0) mmol/L Anion Gap 18.3 BUN 13 (7-18) mg/dL Creatinine 1.2 (0.6-1.3) mg/dL Est Cr Clr Drug Dosing 63.77 mL/min Estimated GFR (MDRD) > 60 BUN/Creatinine Ratio 10.83 Glucose 279 H (74-105) mg/dL Calcium 9.6 (8.4-10.2) mg/dl Total Bilirubin 0.8 (0.2-1.0) mg/dL AST 28 (10-42) IU/L ALT 30 (10-60) IU/L Alkaline Phosphatase 74 (42-121) IU/L Troponin I < 0.02 (0.00-0.02) ng/ml B-Natriuretic Peptide 36 (0-100) pg/ml Total Protein 7.4 (6.7-8.2) g/dl Albumin 4.3 (3.2-5.5) g/dl Globulin 3.1 Albumin/Globulin Ratio 1.39 Lipase 31 (22-51) U/L Meds: Medications Generic Name Dose Route Start Last Admin Trade Name Freq PRN Reason Stop Dose Admin Sodium Chloride 10 ml 08/11/18 11:06 08/11/18 11:10 Saline Flush FLUSH 10 ml ASDIRECTED PRN Administration Keep Vein Open Discontinued Medications Generic Name Dose Route Start Last Admin Trade Name Freq PRN Reason Stop Dose Admin Al Hydroxide/Mg Hydroxide 30 ml 08/11/18 12:41 08/11/18 12:49 Gi Cocktail PO 08/11/18 12:42 30 ml ONETIME ONE Administration Aspirin 324 mg 08/11/18 11:12 08/11/18 11:15 Aspirin PO 08/11/18 11:13 324 mg ONETIME ONE Administration Aspirin Confirm 08/11/18 11:12 08/11/18 11:17 Aspirin Administered 08/11/18 11:13 Not Given Dose 324 mg .ROUTE .STK-MED ONE Famotidine 20 mg 08/11/18 12:41 08/11/18 12:49 Pepcid IVPUSH 08/11/18 12:42 20 mg ONETIME ONE Administration Morphine Sulfate 2 mg 08/11/18 11:46 08/11/18 12:10 Morphine IVPUSH 08/11/18 11:47 2 mg ONETIME ONE Administration Nitroglycerin 1 gm 08/11/18 11:13 08/11/18 11:24 Nitro-Bid 2% TOP 08/11/18 11:14 1 gm ONETIME ONE Administration Nitroglycerin Confirm 08/11/18 11:22 08/11/18 11:25 Nitro-Bid 2% Administered 08/11/18 11:23 Not Given Dose 1 gm .ROUTE .STK-MED ONE - Radiology Interpretation Free Text/Narrative:: [facility] Final Radiology Report Call: [phone] assistance Online chat: [email or web address] Name: JULY SEPULVEDA Age: 67Years M Date: 08/11/2018 SSN: -- : [id number] Study: XR CHEST 1 VIEW Requesting Physician: ROBERT PAGAN Images: 1 Addl Studies: Provided Clinical History: Contrast: Contrast Medium: Contrast Amount: Contrast Method: CONFIDENTIALITY STATEMENT This report is intended only for use by the referring physician, and only in accordance with law. If you received this in error, call [phone]. Page 1 of 1 EXAM: XR Chest, 1 View EXAM DATE/TIME: 08/11/2018 11:09 AM CLINICAL HISTORY: 67 years old, male; Pain; Chest pain TECHNIQUE: XR of the chest, 1 view. COMPARISON: CR Chest 1V Frontal 12/10/2017 8:13 PM FINDINGS: Lungs: Unremarkable. No consolidation. Pleural space: Unremarkable. No pleural effusion. No pneumothorax. Heart/Mediastinum: The cardiomediastinal silhouette is fairly stable in appearance. Bones/joints: Median sternotomy wires are again present. IMPRESSION: No evidence for acute pulmonary disease or significant change since 12/10/17. Thank you for allowing us to participate in the care of your patient. Dictated and Authenticated by: Jacinto Solorio MD 08/11/2018 11:53 AM Central Time ([place] & [place]) - Re-Assessments/Exams Free Text/Narrative Re-Assessment/Exam: 08/11/18 13:06 Pt later remembered that he has forgot to take his Omeprazole for several days. He had no improvement in pain with Nitroglycerin or Morphine. His pain was completely alleviated by Pepcid 20mg IVP and a GI cocktail. He does not wish to stay for a repeat troponin or further chest pain r/o at this time. He agrees to f/u with the [facility] later today or tomorrow for a referral to a control specialist as he is no longer established with one. I think the risk of his current symptoms being related to ACS/AMI or any other life threatening condition is very low at this time, and will d/c him home to f/u in clinic as planned. Departure - Departure Time of Disposition: 13:10 Disposition: Home, Self-Care 01 Condition: Good Clinical Impression: Atypical chest pain Instructions: Nonspecific Chest Pain Forms: ED Department Discharge Additional Instructions: Continue your current medications as prescribed. Follow up with the [facility] for recheck and referral to a control specialist if needed. - My Orders Last 24 Hours: My Active Orders 08/11/18 11:06 EKG 12 Lead [EKG Documentation Completion] [RC] STAT Peripheral IV Care [RC] . DIRECTED Sodium Chloride 0.9% [Saline Flush] 10 ml FLUSH ASDIRECTED PRN Peripheral IV Insertion Adult [OM.PC] Stat - Assessment/Plan Last 24 Hours: My Active Orders 08/11/18 11:06 EKG 12 Lead [EKG Documentation Completion] [RC] STAT Peripheral IV Care [RC] . DIRECTED Sodium Chloride 0.9% [Saline Flush] 10 ml FLUSH ASDIRECTED PRN Peripheral IV Insertion Adult [OM.PC] Stat
[2018-08-11] MEDS ORDERED: Aspirin 81 MG Tab.Chew ONE (11:12)
[2018-08-11] MEDS ORDERED: Aspirin 81 MG Tab.Chew PO ONE (11:12)
[2018-08-11] MEDS ORDERED: Nitroglycerin 2% Oint 1 GM UD Packet TOP ONE (11:13)
[2018-08-11] MEDS ORDERED: Nitroglycerin 2% Oint 1 GM UD Packet ONE (11:22)
[2018-08-11 11:43] VITALS: BP 149/79
[2018-08-11] MEDS ORDERED: Morphine 2 MG/ML Syringe IVPUSH ONE (11:46)
[2018-08-11 11:49] LABS: ANION GAP 18.3; CHLORIDE,CL 99 mmol/L (101-111); SODIUM,NA 136 mmol/L (135-145)
[2018-08-11] MEDS ORDERED: Famotidine 20 MG/2 ML SDV IVPUSH ONE (12:41)
[2018-08-11] MEDS ORDERED: GI Cocktail Oral Solution 30 ML PO ONE (12:41)
== END 2018-08-11 13:35 | disposition home or self-care (01) ==
LOC: DL.ED 11:04
DX: R07.89 Other chest pain (principal); E11.9 Type 2 diabetes mellitus without complications; Z88.8 Allergy status to other drugs, medicaments and biological substances; Z79.899 Other long term (current) drug therapy; Z79.4 Long term (current) use of insulin
CPT/HCPCS: 36415; 71045; 80053; 83690; 83880; 84484; 85025; 85610; 85730; 93005; 96374; 96375; 99285; A9270; J2270; J3490

== ENCOUNTER 2018-12-21 11:00 | Emergency (ER) | payer OTHER ==
[2018-12-21 11:35] LABS: ANION GAP 15.8; CHLORIDE,CL 101 mmol/L (101-111); SODIUM,NA 136 mmol/L (135-145)
--- NOTE | 2018-12-21 11:39 | EDM.PDOC ---
ED HPI GENERAL MEDICAL PROBLEM - General Chief Complaint: Chest Pain Stated Complaint: chest pain Time Seen by Provider: 12/21/18 11:15 Source of Information: Reports: Patient History Limitations: Reports: No Limitations - History of Present Illness INITIAL COMMENTS - FREE TEXT/NARRATIVE: This 68 yo male patient reports to the ED with a 5 day history of intermittent left sided chest pain, dark stools and increased thirst over the past week. The patient reports he has a history of 12 heart surgeries including a CABG, diabetes and TIA's. The patient reports he is on 2 blood thinners and continues to take both at this time. The patient reports chronic back pain. The patient states his chest pain has been intermittent for the past 5 days with the maximum pain rated at a 10/10. The patient reports his chest pain feels like a "spike" is being driven through his left chest. The patient reports he had a dark black bowel movement last and had another black bowel movement last night. The patient reports increased tiredness over the past years. Duration: Day(s):, Intermittent Location: Reports: Other Quality: Reports: Sharp, Stabbing Severity: Moderate Improves with: Reports: None Worsens with: Reports: None Context: Reports: Other Associated Symptoms: Reports: Chest Pain Left Chest Pain Score (Numeric/FACES): 3 - Related Data Allergies Allergy/AdvReac Type Severity Reaction Status Date / Time prednisone Allergy Cannot Verified 09/17/18 11:06 Remember Home Meds: Home Meds metFORMIN HCl [Metformin HCl] 1,000 mg PO BID 05/02/14 [History] Insulin Glargine,Hum.Rec.Anlog [Lantus Solostar] 40 units INJECT BID 05/03/14 [ History] Amiodarone HCl [Pacerone] 200 mg PO DAILY 11/15/16 [History] Apixaban [Eliquis] 5 mg PO BID 09/17/18 [History] Clopidogrel [Plavix] 75 mg PO DAILY 09/17/18 [History] Cyanocobalamin (Vitamin B-12) [Vitamin B-12] 1,000 mcg PO DAILY 09/17/18 [ History] Cyclobenzaprine [Flexeril] 10 mg PO TID PRN 09/17/18 [History] Metoprolol Tartrate 50 mg PO BID 09/17/18 [History] Nitroglycerin [Nitrostat] 0.4 mg SL .Q5MIN X 3 DOSES PRN 09/17/18 [History] Rosuvastatin Calcium 10 mg PO BEDTIME 09/17/18 [History] Tamsulosin [Flomax] 0.4 mg PO BEDTIME 09/17/18 [History] Past Medical History HEENT History: Reports: Cataract, Other (See Below) Other HEENT History: legally blind Cardiovascular History: Reports: Angina, Bypass, CAD, High Cholesterol, Hypertension, [place], Stents Respiratory History: Reports: None Gastrointestinal History: Reports: GERD Genitourinary History: Reports: Renal Calculus Musculoskeletal History: Reports: None 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 Psychiatric History: Reports: None Endocrine/Metabolic History: Reports: Diabetes, Type II Hematologic History: Reports: None Immunologic History: Reports: None Oncologic (Cancer) History: Reports: None Dermatologic History: Reports: None - Infectious Disease History Infectious Disease History: Reports: Chicken Pox, Measles, Mumps - Past Surgical History HEENT Surgical History: Reports: Cataract Surgery Cardiovascular Surgical History: Reports: Coronary Artery Bypass, Coronary Artery Stent Respiratory Surgical History: Reports: None Male Surgical History: Reports: None Musculoskeletal Surgical History: Reports: Arthroscopic Knee, Other (See Below) Other Musculoskeletal Surgeries/Procedures:: ulna relocation Social & Family History - Family History Family Medical History: Noncontributory - Tobacco Use Smoking Status *Q: Never Smoker - Caffeine Use Caffeine Use: Reports: Coffee - Recreational Drug Use Recreational Drug Use: No - Living Situation & Occupation Living situation: Reports: Occupation: Retired ED ROS GENERAL - Review of Systems Review Of Systems: ROS reveals no pertinent complaints other than HPI. ED EXAM, GENERAL - Physical Exam Exam: See Below Exam Limited By: No Limitations General Appearance: Alert, WD/WN, Moderate Distress Eye Exam: Bilateral Eye: EOMI, Normal Inspection, PERRL Ears: Normal External Exam, Normal Canal, Hearing Grossly Normal, Normal TMs Nose: Normal Inspection, Normal Mucosa, No Blood Throat/Mouth: Normal Inspection, Normal Lips, Normal Teeth, Normal Gums, Normal Oropharynx, Normal Voice, No Airway Compromise Head: Atraumatic, Normocephalic Neck: Normal Inspection, Supple, Non-Tender, Full Range of Motion Respiratory/Chest: No Respiratory Distress, Lungs Clear, Normal Breath Sounds, No Accessory Muscle Use, Chest Non-Tender Cardiovascular: Normal Peripheral Pulses, Regular Rate, Rhythm, No Edema, No Gallop, No JVD, No Murmur, No Rub (Male) Exam: Deferred Rectal (Males) Exam: Deferred Back Exam: Normal Inspection, Full Range of Motion, NT Extremities: Normal Inspection, Normal Range of Motion, Non-Tender, Normal Capillary Refill, No Pedal Edema Neurological: Alert, Oriented, CN II-XII Intact, Normal Cognition, Normal Gait, Normal Reflexes, No Motor/Sensory Deficits Psychiatric: Normal Affect, Normal Mood Skin Exam: Warm, Dry, Intact, Normal Color, No Rash Lymphatic: No Adenopathy Course - Vital Signs Last Recorded V/S: Last Vital Signs Temp 36.4 C 12/21/18 12:28 Pulse 96 12/21/18 12:28 Resp 12 12/21/18 12:28 BP 133/77 12/21/18 12:28 Pulse Ox 100 12/21/18 12:28 Orthostatic Blood Pressure [ 161/82 Standing] Orthostatic Blood Pressure [ 137/74 Sitting] Orthostatic Blood Pressure [ 133/77 Supine] - Orders/Labs/Meds Orders: Active Orders 24 hr Category Date Time Status EKG Documentation Completion [RC] URGENT Care 12/21/18 11:04 Active Chest 1V Frontal [CR] Urgent Exams 12/21/18 11:04 Taken Labs: Laboratory Tests 12/21/18 12/21/18 12/21/18 Range/Units 11:10 11:10 11:10 WBC 4.2 L (5.0-10.0) 10^3/uL RBC 4.31 L (4.6-6.2) 10^6/uL Hgb 12.8 L (14.0-18.0) g/dL Hct 37.5 L (40.0-54.0) % MCV 87.0 D (80-100) fL MCH 29.7 (27.0-34.0) pg MCHC 34.1 (33.0-35.0) g/dL Plt Count 189 (150-450) 10^3/uL Neut % (Auto) 61.5 (42.2-75.2) % Lymph % (Auto) 22.5 (20.5-50.1) % [place] % (Auto) 10.4 H (2-8) % Eos % (Auto) 4.7 H (1.0-3.0) % Baso % (Auto) 0.9 (0.0-1.0) % PT 10.2 (9.0-12.0) SEC INR 1.0 (0.9-1.2) D-Dimer, Quantitative 251 (0-400) ng/mL Sodium 136 (135-145) mmol/L Potassium 3.8 (3.6-5.0) mmol/L Chloride 101 (101-111) mmol/L Carbon Dioxide 23.0 (21.0-31.0) mmol/L Anion Gap 15.8 BUN 13 (7-18) mg/dL Creatinine 1.1 (0.6-1.3) mg/dL Est Cr Clr Drug Dosing TNP Estimated GFR (MDRD) > 60 BUN/Creatinine Ratio 11.81 Glucose 327 H (74-105) mg/dL Calcium 8.9 (8.4-10.2) mg/dl Total Bilirubin 0.7 (0.2-1.0) mg/dL AST 26 (10-42) IU/L ALT 42 (10-60) IU/L Alkaline Phosphatase 94 (42-121) IU/L Troponin I < 0.02 (0.00-0.02) ng/ml Total Protein 7.4 (6.7-8.2) g/dl Albumin 4.4 (3.2-5.5) g/dl Globulin 3.0 Albumin/Globulin Ratio 1.47 Departure - Departure Time of Disposition: 12:37 Disposition: Home, Self-Care 01 Condition: Fair Clinical Impression: Nonspecific chest pain, Chest wall pain Instructions: Nonspecific Chest Pain, [id number], Chest Wall Pain, Easy-to- Read Forms: ED Department Discharge Care Plan Goals: The patient was advised of the examination, lab, EKG and x-ray results during the visit. The patient was encouraged to follow-up with his primary care facility for continued evaluation and management. If the patient has any additional symptoms or concerns, the patient should either return to the emergency department or visit her primary care facility. - My Orders Last 24 Hours: My Active Orders 12/21/18 11:04 EKG Documentation Completion [RC] URGENT Chest 1V Frontal [CR] Urgent - Assessment/Plan Last 24 Hours: My Active Orders 12/21/18 11:04 EKG Documentation Completion [RC] URGENT Chest 1V Frontal [CR] Urgent
[2018-12-21 12:28] VITALS: BP 133/77
== END 2018-12-21 12:47 | disposition home or self-care (01) ==
LOC: DL.ED 11:00
DX: R07.89 Other chest pain (principal); E11.9 Type 2 diabetes mellitus without complications; I10 Essential (primary) hypertension; E78.00 Pure hypercholesterolemia, unspecified; I25.2 Old myocardial infarction; I25.10 Atherosclerotic heart disease of native coronary artery without angina pectoris; K21.9 Gastro-esophageal reflux disease without esophagitis; Z79.4 Long term (current) use of insulin; Z79.899 Other long term (current) drug therapy; Z88.8 Allergy status to other drugs, medicaments and biological substances
CPT/HCPCS: 36415; 71045; 80053; 82272; 84484; 85025; 85379; 85610; 93005; 99285-25

== ENCOUNTER 2019-06-07 15:20 | Emergency (ER) | payer OTHER ==
[2019-06-07 15:28] VITALS: BP 135/82; PULSE 88
[2019-06-07] MEDS ORDERED: Sodium Chloride 0.9% 10 ML Syringe FLUSH PRN (15:52)
[2019-06-07 16:45] LABS: ANION GAP 12.9; CHLORIDE,CL 109 mmol/L (101-111); SODIUM,NA 140 mmol/L (135-145)
[2019-06-07] MEDS ORDERED: GI Cocktail Oral Solution 30 ML PO ONE (17:01)
[2019-06-07] MEDS ORDERED: Famotidine 20 MG/2 ML SDV IVPUSH ONE (17:01)
--- NOTE | 2019-06-07 17:31 | CR ---
EXAMINATION: Chest 1V Frontal SEX: Male AGE: 68 years CLINICAL HISTORY: 68-year-old male with chest pain. Comparison film 21 December 2018. INTERPRETATION: 1. Sternotomy wires. External director of cardiac cath lab leads. 2. Normal cardiac silhouette without cephalization of vascular flow, alveolar edema or dependent new pleural fluid accumulation. 3. No new lung mass, hilar lymphadenopathy or focal lobar pneumonia. 4. No atelectasis/collapse. 5. No pneumothorax, pneumomediastinum or free subdiaphragmatic air. CONCLUSION: No acute new cardiopulmonary abnormality i.e. unchanged since December 2018 exam.
--- NOTE | 2019-06-07 17:54 | EDM.PDOC ---
Scribed by Trisha Bess 06/07/19 2571 for Jude Bullard MD ED HPI GENERAL MEDICAL PROBLEM - General Chief Complaint: Chest Pain Stated Complaint: AMBULANCE Time Seen by Provider: 06/07/19 15:50 Source of Information: Reports: Patient, RN, RN Notes Reviewed History Limitations: Reports: No Limitations - History of Present Illness INITIAL COMMENTS - FREE TEXT/NARRATIVE: Patient presents to ER by [facility]. EMs report at 1515, 68- year-old male with SOB on exertion, left jaw pressure/pain as well as pain that radiates across the chest and down the left arm. History of DM and heart failure. Vital signs 63 HR, 138/64, 15 RR, 98.9 F, 99% RA. BS 227. Patient also reports increasing weakness. Patient reports that symptoms started 3 days ago. He reports undergoing a stress test on that day. Intermittent chest pain, patient reports taking nitro 0.4 x 3 last dose at 14:00 hours today. Patient has extensive cardiac history. Onset: Gradual Duration: Constant Location: Reports: Chest Quality: Reports: Ache Severity: Moderate Improves with: Reports: None Worsens with: Reports: None Associated Symptoms: Reports: No Other Symptoms Chest Pain Score (Numeric/FACES): 5 - Related Data Allergies Allergy/AdvReac Type Severity Reaction Status Date / Time prednisone Allergy Cannot Verified 06/07/19 15:28 Remember Home Meds: Home Meds metFORMIN HCl [Metformin HCl] 1,000 mg PO BID 05/02/14 [History] Insulin Glargine,Hum.Rec.Anlog [Lantus Solostar] 40 units INJECT BID 05/03/14 [ History] Apixaban [Eliquis] 5 mg PO BID 09/17/18 [History] Clopidogrel [Plavix] 75 mg PO DAILY 09/17/18 [History] Cyanocobalamin (Vitamin B-12) [Vitamin B-12] 1,000 mcg PO DAILY 09/17/18 [ History] Cyclobenzaprine [Flexeril] 10 mg PO TID PRN 09/17/18 [History] Metoprolol Tartrate 50 mg PO BID 09/17/18 [History] Nitroglycerin [Nitrostat] 0.4 mg SL .Q5MIN X 3 DOSES PRN 09/17/18 [History] Tamsulosin [Flomax] 0.4 mg PO BEDTIME 09/17/18 [History] Past Medical History HEENT History: Reports: Cataract, Other (See Below) Other HEENT History: legally blind Cardiovascular History: Reports: Angina, Bypass, CAD, High Cholesterol, Hypertension, [place], Stents Respiratory History: Reports: None Gastrointestinal History: Reports: GERD Genitourinary History: Reports: Renal Calculus Musculoskeletal History: Reports: None 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 Psychiatric History: Reports: None Endocrine/Metabolic History: Reports: Diabetes, Type II Hematologic History: Reports: None Immunologic History: Reports: None Oncologic (Cancer) History: Reports: None Dermatologic History: Reports: None - Infectious Disease History Infectious Disease History: Reports: Chicken Pox, Measles, Mumps - Past Surgical History HEENT Surgical History: Reports: Cataract Surgery Cardiovascular Surgical History: Reports: Coronary Artery Bypass, Coronary Artery Stent Respiratory Surgical History: Reports: None Male Surgical History: Reports: None Musculoskeletal Surgical History: Reports: Arthroscopic Knee, Other (See Below) Other Musculoskeletal Surgeries/Procedures:: ulna relocation Social & Family History - Family History Family Medical History: Noncontributory - Caffeine Use Caffeine Use: Reports: Coffee - Living Situation & Occupation Living situation: Reports: Occupation: Retired ED ROS GENERAL - Review of Systems Review Of Systems: Comprehensive ROS is negative, except as noted in HPI. ED EXAM, GENERAL - Physical Exam Exam: See Below Exam Limited By: No Limitations General Appearance: Alert, WD/WN, No Apparent Distress, Anxious Eye Exam: Bilateral Eye: Normal Inspection Nose: Normal Inspection, Normal Mucosa, No Blood Throat/Mouth: Normal Inspection, Normal Lips, Normal Teeth, Normal Gums, Normal Oropharynx, Normal Voice, No Airway Compromise Head: Atraumatic, Normocephalic Neck: Normal Inspection, Supple, Non-Tender, Full Range of Motion Respiratory/Chest: No Respiratory Distress, Lungs Clear, Normal Breath Sounds, No Accessory Muscle Use, Chest Non-Tender Cardiovascular: Normal Peripheral Pulses, Regular Rate, Rhythm, No Edema, No Gallop, No JVD, No Murmur, No Rub GI/Abdominal: Normal Bowel Sounds, Soft, No Abnormal Bruit, No Mass, Tender ( Mild epigastric tenderness). No: Guarding, Rigid, Rebound (Male) Exam: Deferred Rectal (Males) Exam: Deferred Back Exam: Normal Inspection Extremities: Normal Inspection, Normal Range of Motion, Non-Tender, Normal Capillary Refill, No Pedal Edema Neurological: Alert, Oriented, CN II-XII Intact, Normal Cognition, Normal Gait, No Motor/Sensory Deficits Psychiatric: Anxious Skin Exam: Warm, Dry, Intact, Normal Color, No Rash EKG INTERPRETATION EKG Date: 06/07/19 Time: 15:30 Rhythm: Other (sinus tachycardia) Rate (Beats/Min): 102 EKG Interpretation Comments: paired ventricular premature complexes. First degre AV block. Borderline repolarization abnormality. Course - Vital Signs Last Recorded V/S: Last Vital Signs Temp 98.5 F 06/07/19 15:22 Pulse 88 06/07/19 15:22 Resp 18 06/07/19 15:22 BP 135/82 06/07/19 15:22 Pulse Ox 99 06/07/19 15:22 - Orders/Labs/Meds Orders: Active Orders 24 hr Category Date Time Status EKG 12 Lead [EKG Documentation Completion] [RC] STAT Care 06/07/19 15:52 Active Peripheral IV Care [RC] . DIRECTED Care 06/07/19 15:53 Active Sodium Chloride 0.9% [Saline Flush] Med 06/07/19 15:52 Active 10 ml FLUSH ASDIRECTED PRN Peripheral IV Insertion Adult [OM.PC] Stat Oth 06/07/19 15:52 Ordered Medication Orders Sodium Chloride (Saline Flush) 10 ml FLUSH ASDIRECTED PRN PRN Reason: Keep Vein Open Last Admin: 06/07/19 16:16 Dose: 10 ml Labs: Laboratory Tests 06/07/19 06/07/19 06/07/19 Range/Units 16:07 16:07 16:07 WBC 3.9 L (5.0-10.0) 10^3/uL RBC 3.50 L (4.6-6.2) 10^6/uL Hgb 10.3 L D (14.0-18.0) g/dL Hct 29.8 L (40.0-54.0) % MCV 85.1 (80-100) fL MCH 29.4 (27.0-34.0) pg MCHC 34.6 (33.0-35.0) g/dL Plt Count 152 (150-450) 10^3/uL Neut % (Auto) 50.0 (42.2-75.2) % Lymph % (Auto) 21.9 (20.5-50.1) % [place] % (Auto) 12.9 H (2-8) % Eos % (Auto) 14.7 H (1.0-3.0) % Baso % (Auto) 0.5 (0.0-1.0) % PT 10.4 (9.0-12.0) SEC INR 1.0 (0.9-1.2) APTT 24.5 (22.0-34.0) SEC Sodium 140 (135-145) mmol/L Potassium 3.9 (3.6-5.0) mmol/L Chloride 109 (101-111) mmol/L Carbon Dioxide 22.0 (21.0-31.0) mmol/L Anion Gap 12.9 BUN 21 H (7-18) mg/dL Creatinine 1.0 (0.6-1.3) mg/dL Est Cr Clr Drug Dosing 75.44 mL/min Estimated GFR (MDRD) > 60 BUN/Creatinine Ratio 21.00 Glucose 202 H (74-105) mg/dL Calcium 8.9 (8.4-10.2) mg/dl Total Bilirubin 0.7 (0.2-1.0) mg/dL AST 19 (10-42) IU/L ALT 23 (10-60) IU/L Alkaline Phosphatase 64 (42-121) IU/L Troponin I < 0.02 (0.00-0.02) ng/ml B-Natriuretic Peptide 95 (0-100) pg/ml Total Protein 6.6 L (6.7-8.2) g/dl Albumin 3.8 (3.2-5.5) g/dl Globulin 2.8 Albumin/Globulin Ratio 1.36 Lipase 28 (22-51) U/L Meds: Medications Generic Name Dose Route Start Last Admin Trade Name Freq PRN Reason Stop Dose Admin Sodium Chloride 10 ml 06/07/19 15:52 06/07/19 16:16 Saline Flush FLUSH 10 ml ASDIRECTED PRN Administration Keep Vein Open Discontinued Medications Generic Name Dose Route Start Last Admin Trade Name Freq PRN Reason Stop Dose Admin Al Hydroxide/Mg Hydroxide 30 ml 06/07/19 17:01 06/07/19 17:10 Gi Cocktail PO 06/07/19 17:02 30 ml ONETIME ONE Administration Famotidine 20 mg 06/07/19 17:01 06/07/19 17:10 Pepcid IVPUSH 06/07/19 17:02 20 mg ONETIME ONE Administration - Radiology Interpretation Free Text/Narrative:: Chest x-ray: No acute new cardiopulmonary abnormality i.e., unchanged since December 2018 exam. See rad report. Departure - Departure Time of Disposition: 17:50 Disposition: Home, Self-Care 01 Condition: Good Clinical Impression: Atypical chest pain GERD (gastroesophageal reflux disease) Qualifiers: Esophagitis presence: with esophagitis Qualified Code(s): K21.0 - Gastro- esophageal reflux disease with esophagitis Instructions: Food Choices for Gastroesophageal Reflux Disease, Adult, Nonspecific Chest Pain, Gastroesophageal Reflux Disease, Adult, [id number] Forms: ED Department Discharge Additional Instructions: Rx: Pepcid 40mg Follow up in clinic with your doctor or datapower consultant in the next week. Return to ER if worse at any time. - My Orders Last 24 Hours: My Active Orders 06/07/19 15:52 EKG 12 Lead [EKG Documentation Completion] [RC] STAT Sodium Chloride 0.9% [Saline Flush] 10 ml FLUSH ASDIRECTED PRN Peripheral IV Insertion Adult [OM.PC] Stat 06/07/19 15:53 Peripheral IV Care [RC] . DIRECTED - Assessment/Plan Last 24 Hours: My Active Orders 06/07/19 15:52 EKG 12 Lead [EKG Documentation Completion] [RC] STAT Sodium Chloride 0.9% [Saline Flush] 10 ml FLUSH ASDIRECTED PRN Peripheral IV Insertion Adult [OM.PC] Stat 06/07/19 15:53 Peripheral IV Care [RC] . DIRECTED I have read and agree with the documentation that has been completed regarding this visit. By signing this record, I attest that the documentation was completed in my physical presence and is an accurate record of the encounter.
== END 2019-06-07 18:04 | disposition home or self-care (01) ==
LOC: DL.ED 15:20
DX: K21.0 Gastro-esophageal reflux disease with esophagitis (principal); R07.89 Other chest pain; H54.8 Legal blindness, as defined in USA; I25.10 Atherosclerotic heart disease of native coronary artery without angina pectoris; I10 Essential (primary) hypertension; I25.2 Old myocardial infarction; E11.9 Type 2 diabetes mellitus without complications; Z88.8 Allergy status to other drugs, medicaments and biological substances; Z95.5 Presence of coronary angioplasty implant and graft; Z79.4 Long term (current) use of insulin; Z79.01 Long term (current) use of anticoagulants; Z79.899 Other long term (current) drug therapy
CPT/HCPCS: 36415; 71045; 80053; 83690; 83880; 84484; 85025; 85610; 85730; 93005; 96374; 99285; A9270; J3490; 93010; 99284

== ENCOUNTER 2019-06-14 10:55 | Emergency (ER) | payer OTHER ==
--- NOTE | 2019-06-14 11:29 | EDM.PDOC ---
ED HPI GENERAL MEDICAL PROBLEM - General Stated Complaint: AMBULANCE Time Seen by Provider: 06/14/19 11:10 Source of Information: Reports: Patient History Limitations: Reports: No Limitations - History of Present Illness INITIAL COMMENTS - FREE TEXT/NARRATIVE: This 68 yo male patient was brought to the ED by [facility] due to intermittent chest pain. The patient reports he had a stent placed last week (06/10/19). The patient reports he has had intermittent chest pain since he had the stent placed. The patient has taken nitro several times with little to no changes in his pain. The patient was given an oral dose of Aspirin by EMS prior to arrival in the Ed. The patient reports he currently rates his pain at a 5/10. The patient reports he had similar pain while still in the hospital and was given a pill that took the pain away. The patient reports he was discharged, but the pain came back as soon as he got home on Friday. The patient also reports he has a continuous headache today, but reports it is not like a "nitro headache." Onset Date: 06/11/19 Duration: Intermittent Location: Reports: Chest Quality: Reports: Ache, Dull Severity: Moderate Improves with: Reports: None Worsens with: Reports: None Context: Reports: Other Associated Symptoms: Reports: No Other Symptoms Chest Pain Score (Numeric/FACES): 5 - Related Data Allergies Allergy/AdvReac Type Severity Reaction Status Date / Time prednisone Allergy Cannot Verified 06/14/19 11:00 Remember Home Meds: Home Meds metFORMIN HCl [Metformin HCl] 1,000 mg PO BID 05/02/14 [History] Insulin Glargine,Hum.Rec.Anlog [Lantus Solostar] 40 units INJECT BID 05/03/14 [ History] Apixaban [Eliquis] 5 mg PO BID 09/17/18 [History] Clopidogrel [Plavix] 75 mg PO DAILY 09/17/18 [History] Cyanocobalamin (Vitamin B-12) [Vitamin B-12] 1,000 mcg PO DAILY 09/17/18 [ History] Cyclobenzaprine [Flexeril] 10 mg PO TID PRN 09/17/18 [History] Metoprolol Tartrate 50 mg PO BID 09/17/18 [History] Nitroglycerin [Nitrostat] 0.4 mg SL .Q5MIN X 3 DOSES PRN 09/17/18 [History] Tamsulosin [Flomax] 0.4 mg PO BEDTIME 09/17/18 [History] Past Medical History HEENT History: Reports: Cataract, Other (See Below) Other HEENT History: legally blind Cardiovascular History: Reports: Angina, Bypass, CAD, High Cholesterol, Hypertension, [place], Stents Respiratory History: Reports: None Gastrointestinal History: Reports: GERD Genitourinary History: Reports: Renal Calculus Musculoskeletal History: Reports: None Other Musculoskeletal History: Guillain-Houston Neurological History: Reports: Other (See Below) Other Neuro History: 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 Psychiatric History: Reports: None Endocrine/Metabolic History: Reports: Diabetes, Type II Hematologic History: Reports: None Other Hematologic History: Patient refuses blood tranfusions, is a [employer] Immunologic History: Reports: None Oncologic (Cancer) History: Reports: None Dermatologic History: Reports: None - Infectious Disease History Infectious Disease History: Reports: Chicken Pox, Measles, Mumps - Past Surgical History HEENT Surgical History: Reports: Cataract Surgery Cardiovascular Surgical History: Reports: Coronary Artery Bypass, Coronary Artery Stent Respiratory Surgical History: Reports: None Male Surgical History: Reports: None Musculoskeletal Surgical History: Reports: Arthroscopic Knee, Other (See Below) Other Musculoskeletal Surgeries/Procedures:: ulna relocation Social & Family History - Family History Family Medical History: Noncontributory - Caffeine Use Caffeine Use: Reports: Coffee - Living Situation & Occupation Living situation: Reports: Occupation: Retired ED ROS GENERAL - Review of Systems Review Of Systems: Comprehensive ROS is negative, except as noted in HPI. ED EXAM, GENERAL - Physical Exam Exam: See Below Exam Limited By: No Limitations General Appearance: Alert, WD/WN, Moderate Distress Eye Exam: Bilateral Eye: EOMI, Normal Inspection, PERRL Ears: Normal External Exam, Normal Canal, Hearing Grossly Normal, Normal TMs Nose: Normal Inspection, Normal Mucosa, No Blood Throat/Mouth: Normal Inspection, Normal Lips, Normal Teeth, Normal Gums, Normal Oropharynx, Normal Voice, No Airway Compromise Head: Atraumatic, Normocephalic Neck: Normal Inspection, Supple, Non-Tender, Full Range of Motion Respiratory/Chest: No Respiratory Distress, Lungs Clear, Normal Breath Sounds, No Accessory Muscle Use, Chest Non-Tender Cardiovascular: Normal Peripheral Pulses, Regular Rate, Rhythm, No Edema, No Gallop, No JVD, No Murmur, No Rub GI/Abdominal: Normal Bowel Sounds, Soft, Non-Tender, No Organomegaly, No Distention, No Abnormal Bruit, No Mass (Male) Exam: Deferred Rectal (Males) Exam: Deferred Back Exam: Normal Inspection, Full Range of Motion, NT Extremities: Normal Inspection, Normal Range of Motion, Non-Tender, Normal Capillary Refill, No Pedal Edema Neurological: Alert, Oriented, CN II-XII Intact, Normal Cognition, Normal Gait, Normal Reflexes, No Motor/Sensory Deficits Psychiatric: Normal Affect, Normal Mood Skin Exam: Warm, Dry, Intact, Normal Color, No Rash Lymphatic: No Adenopathy Course - Vital Signs Last Recorded V/S: Last Vital Signs Temp 36.3 C 06/14/19 11:21 Pulse 84 06/14/19 11:21 Resp 12 06/14/19 11:21 BP 124/58 L 06/14/19 11:21 Pulse Ox 98 06/14/19 11:21 - Orders/Labs/Meds Orders: Active Orders 24 hr Category Date Time Status EKG Documentation Completion [RC] URGENT Care 06/14/19 10:56 Active DRUG SCREEN URINE BIORAD [URCHEM] Stat Lab 06/14/19 10:56 Ordered INR,PT,PROTHROMBIN TIME [COAG] Stat Lab 06/14/19 11:03 Received KETONES,BLOOD [CHEM] Stat Lab 06/14/19 10:56 Ordered UA RFX BUBBA AND CULT IF INDIC [URIN] Urgent Lab 06/14/19 10:56 Ordered Heparin Sodium/0.45% NaCl [Heparin 25,000 Units in 1/2 Med 06/14/19 11:47 Ordered NS 500 ML] 25,000 units in 500 ml IV ONETIME Medication Orders Heparin Sodium/Sodium Chloride (Heparin 25,000 Units In 1/2 Ns 500 Ml) 25,000 units in 500 mls @ 20.172 mls/hr IV ONETIME ONE Stop: 06/15/19 12:34 Labs: Laboratory Tests 06/14/19 06/14/19 Range/Units 11:03 11:03 WBC 4.5 L (5.0-10.0) 10^3/uL RBC 3.71 L (4.6-6.2) 10^6/uL Hgb 10.8 L (14.0-18.0) g/dL Hct 31.7 L (40.0-54.0) % MCV 85.4 (80-100) fL MCH 29.1 (27.0-34.0) pg MCHC 34.1 (33.0-35.0) g/dL Plt Count 178 (150-450) 10^3/uL Neut % (Auto) 52.7 (42.2-75.2) % Lymph % (Auto) 19.4 L (20.5-50.1) % Cotton % (Auto) 14.5 H (2-8) % Eos % (Auto) 13.0 H (1.0-3.0) % Baso % (Auto) 0.4 (0.0-1.0) % Sodium 141 (135-145) mmol/L Potassium 4.1 (3.6-5.0) mmol/L Chloride 106 (101-111) mmol/L Carbon Dioxide 25.0 (21.0-31.0) mmol/L Anion Gap 14.1 BUN 16 (7-18) mg/dL Creatinine 1.0 (0.6-1.3) mg/dL Est Cr Clr Drug Dosing 73.21 mL/min Estimated GFR (MDRD) > 60 BUN/Creatinine Ratio 16.00 Glucose 270 H (74-105) mg/dL Calcium 9.6 (8.4-10.2) mg/dl Total Bilirubin 0.7 (0.2-1.0) mg/dL AST 22 (10-42) IU/L ALT 28 (10-60) IU/L Alkaline Phosphatase 67 (42-121) IU/L Troponin I 0.44 H* (0.00-0.02) ng/ml Total Protein 7.0 (6.7-8.2) g/dl Albumin 4.2 (3.2-5.5) g/dl Globulin 2.8 Albumin/Globulin Ratio 1.50 Meds: Medications Generic Name Dose Route Start Last Admin Trade Name Freq PRN Reason Stop Dose Admin Heparin Sodium/Sodium Chloride 25,000 units in 500 mls @ 20.172 mls/hr 11:47 Heparin 25,000 Units In 1/2 Ns 500 Ml IV 06/15/19 12:34 ONETIME ONE 12 UNITS/KG/HR Discontinued Medications Generic Name Dose Route Start Last Admin Trade Name Freq PRN Reason Stop Dose Admin Heparin Sodium (Porcine) 4,000 units 06/14/19 11:47 Heparin Sodium IVPUSH 06/14/19 11:48 .BOLUS ONE Morphine Sulfate 2 mg 06/14/19 11:34 06/14/19 11:40 Morphine IVPUSH 06/14/19 11:35 2 mg ONETIME ONE Administration Departure - Departure Time of Disposition: 11:52 Disposition: DC/Tfer to Acute Hospital 02 Reason for Transfer *Q: Other Condition: Serious Clinical Impression: NSTEMI (non-ST elevated myocardial infarction) Forms: Interfacility Transfer EMTALA Care Plan Goals: Discussed the patient's history, examination, lab, x-ray and EKG results with Dr. Freeman (Hospitalist with [facility] in [place]). Dr. Freeman accepted the patient for continued evaluation and further management. Dr. Freeman advised to give the patient a heparin bolus and a heparin drip started prior to transfer. The patient will be transported by [facility]. - My Orders Last 24 Hours: My Active Orders 06/14/19 10:56 EKG Documentation Completion [RC] URGENT DRUG SCREEN URINE BIORAD [URCHEM] Stat KETONES,BLOOD [CHEM] Stat UA RFX BUBBA AND CULT IF INDIC [URIN] Urgent 06/14/19 11:03 INR,PT,PROTHROMBIN TIME [COAG] Stat 06/14/19 11:47 Heparin Sodium/0.45% NaCl [Heparin 25,000 Units in 1/2 NS 500 ML] 25,000 units in 500 ml IV ONETIME - Assessment/Plan Last 24 Hours: My Active Orders 06/14/19 10:56 EKG Documentation Completion [RC] URGENT DRUG SCREEN URINE BIORAD [URCHEM] Stat KETONES,BLOOD [CHEM] Stat UA RFX BUBBA AND CULT IF INDIC [URIN] Urgent 06/14/19 11:03 INR,PT,PROTHROMBIN TIME [COAG] Stat 06/14/19 11:47 Heparin Sodium/0.45% NaCl [Heparin 25,000 Units in 1/2 NS 500 ML] 25,000 units in 500 ml IV ONETIME
[2019-06-14 11:31] VITALS: BP 124/58; PULSE 84
[2019-06-14] MEDS ORDERED: Morphine 2 MG/ML Syringe IVPUSH ONE (11:34)
[2019-06-14 11:35] LABS: ANION GAP 14.1; CHLORIDE,CL 106 mmol/L (101-111); SODIUM,NA 141 mmol/L (135-145)
[2019-06-14] MEDS ORDERED: Heparin Sodium 5,000 Units/ML Vial IVPUSH ONE (11:47)
[2019-06-14] MEDS ORDERED: Heparin Sodium/0.45% NaCl 25,000 UNITS/500 ML BAG IV ONE (11:47)
--- NOTE | 2019-06-14 11:47 | CR ---
EXAMINATION: Chest 1V Frontal SEX: Male AGE: 68 years CLINICAL HISTORY: 68-year-old male emergency department with chest pain. Comparison films 07 June and 21 December 2018. INTERPRETATION: 1. Mild left ventricular configuration is patient with sternotomy wires and external cardiac cath technologist leads. 2. No new signs of pulmonary venous congestion, alveolar edema or dependent pleural effusion. 3. No new lung mass or hilar lymphadenopathy. 4. No focal lobar pneumonia, atelectasis or collapse. 5. No pneumothorax or pneumomediastinum. CONCLUSION: No acute new cardiopulmonary abnormality.
== END 2019-06-14 12:45 ==
LOC: DL.ED 10:55
DX: I21.4 Non-ST elevation (NSTEMI) myocardial infarction (principal); I25.2 Old myocardial infarction; I10 Essential (primary) hypertension; E11.9 Type 2 diabetes mellitus without complications; Z79.4 Long term (current) use of insulin; Z88.8 Allergy status to other drugs, medicaments and biological substances; Z79.01 Long term (current) use of anticoagulants; Z79.02 Long term (current) use of antithrombotics/antiplatelets; Z79.899 Other long term (current) drug therapy; Z95.5 Presence of coronary angioplasty implant and graft
CPT/HCPCS: 36415; 71045; 80053; 80305; 81003; 82009; 84484; 85025; 85610; 93005; 96374; 96375; 99285; J1644; J2270; 99284

== ENCOUNTER 2019-07-09 12:14 | Emergency (ER) | payer OTHER ==
[2019-07-09 12:50] VITALS: PULSE 86
[2019-07-09] MEDS ORDERED: Aspirin 81 MG Tab.Chew PO ONE (12:53)
[2019-07-09 13:05] LABS: ANION GAP 12.8; CHLORIDE,CL 105 mmol/L (101-111); SODIUM,NA 138 mmol/L (135-145)
[2019-07-09] MEDS ORDERED: Nitroglycerin 0.4 MG Tab.SL ONE (13:16)
[2019-07-09] MEDS ORDERED: Nitroglycerin 0.4 MG Tab.SL SL ONE (13:18)
[2019-07-09] MEDS ORDERED: Heparin Sodium 5,000 Units/ML Vial IVPUSH ONE (13:20)
[2019-07-09] MEDS ORDERED: Heparin Sodium/0.45% NaCl 25,000 UNITS/500 ML BAG IV SCH (13:30)
[2019-07-09 13:35] VITALS: BP 139/68
[2019-07-09] MEDS ORDERED: Morphine 10 MG/ML SDV IVPUSH ONE (13:36)
--- NOTE | 2019-07-09 13:42 | CR ---
EXAMINATION: Chest 1V Frontal SEX: Male AGE: 68 years CLINICAL HISTORY: 68-year-old male with chest PAIN. INTERPRETATION: 1. Sternotomy wires. Normal cardiac silhouette considering poor inspiration. 2. No pulmonary vascular congestion, cephalization of flow, new alveolar edema or dependent pleural fluid accumulation when compared to 14 June 2019. 3. No new lung mass, hilar lymphadenopathy or focal lobar pneumonia. 4. No atelectasis/collapse. 5. No pneumothorax. CONCLUSION: No acute new cardiopulmonary abnormality.
[2019-07-09] MEDS ORDERED: Nitroglycerin/D5W 25 MG/250 ML BOTTLE IV SCH (13:45)
== END 2019-07-09 14:15 ==
LOC: DL.ED 12:14
DX: I24.9 Acute ischemic heart disease, unspecified (principal); I10 Essential (primary) hypertension; E11.9 Type 2 diabetes mellitus without complications; I25.2 Old myocardial infarction; Z95.1 Presence of aortocoronary bypass graft; Z88.8 Allergy status to other drugs, medicaments and biological substances; Z79.4 Long term (current) use of insulin; Z79.01 Long term (current) use of anticoagulants; Z79.02 Long term (current) use of antithrombotics/antiplatelets; Z79.899 Other long term (current) drug therapy
CPT/HCPCS: 36415; 71045; 80053; 84484; 85025; 93005; 96365; 96375; 99285; A9270; J1644; J2270; J3490

== ENCOUNTER 2019-08-08 05:25 | Emergency (ER) | payer OTHER ==
[2019-08-08 05:25] VITALS: PULSE 105
[2019-08-08] MEDS ORDERED: Aspirin 81 MG Tab.Chew PO ONE ×2 (05:42→06:24)
[2019-08-08] MEDS ORDERED: Sodium Chloride 0.9% 10 ML Syringe FLUSH PRN (05:42)
[2019-08-08] MEDS ORDERED: Ondansetron 4 MG/2 ML SDV IV ONE (05:56)
[2019-08-08] MEDS ORDERED: Clindamycin Phosphate 900 MG in Sodium Chloride 0.9% 100 ML IV ONE (05:57)
[2019-08-08] MEDS ORDERED: Dexamethasone 4 MG/ML SDV IVPUSH ONE ×2 (05:57→07:10)
[2019-08-08 06:00] LABS: CHLORIDE,CL 105 mmol/L (101-111); SODIUM,NA 138 mmol/L (135-145)
--- NOTE | 2019-08-08 06:00 | EDM.PDOC ---
"<Estefani Mccormack - Last Filed: 08/08/19 07:01> ED HPI GENERAL MEDICAL PROBLEM - General Chief Complaint: Chest Pain Stated Complaint: AMBULANCE-CHEST PAIN Time Seen by Provider: 08/08/19 06:00 Source of Information: Reports: Patient History Limitations: Reports: No Limitations, Other (poor historian) - History of Present Illness INITIAL COMMENTS - FREE TEXT/NARRATIVE: patient comes emergency department today by ambulance with complaints of throat pain and dental pain chest pain abdominal pain. Patient is a rather poor historian and it is difficult to follow his history of HPI. patient has complained of epigastric and chest pain for the past 5-6 days. Although this is a typical chest pain and epigastric pain that he has been dealing with for 15 years. He has no shortness of breath cough or congestion. No diaphoresis. He also complains of jaw left lower area pain. He has been doctoring on amoxicillin for dental abscess and needs some dental work with tooth extraction. He can barely open his mouth due to the pain in his left lower jaw. It is painful for him to eat and swallow. As stated previously it is difficult to understand what the patient's primary complaint is although I think it's more than dental pain that has gotten worse over the past few days and this may contribute to his worsening CP and epigastric pain he has had for 15 years. Treatments CLASSIFICATIONS OFFICER CC/CM: Reports: Aspirin, Nitroglycerin Chest Pain Score (Numeric/FACES): 7 - Related Data Allergies Allergy/AdvReac Type Severity Reaction Status Date / Time prednisone Allergy Cannot Verified 08/08/19 05:37 Remember Home Meds: Home Meds metFORMIN HCl [Metformin HCl] 1,000 mg PO BID 05/02/14 [History] Insulin Glargine,Hum.Rec.Anlog [Lantus Solostar] 40 units INJECT BID 05/03/14 [ History] Apixaban [Eliquis] 2.5 mg PO BID 09/17/18 [History] Clopidogrel [Plavix] 75 mg PO DAILY 09/17/18 [History] Cyanocobalamin (Vitamin B-12) [Vitamin B-12] 1,000 mcg PO DAILY 09/17/18 [ History] Metoprolol Tartrate 50 mg PO BID 09/17/18 [History] Nitroglycerin [Nitrostat] 0.4 mg SL .Q5MIN X 3 DOSES PRN 09/17/18 [History] Tamsulosin [Flomax] 0.4 mg PO BEDTIME 09/17/18 [History] Amoxicillin 500 mg PO QID 08/08/19 [History] Past Medical History HEENT History: Reports: Cataract, Other (See Below) Other HEENT History: legally blind Cardiovascular History: Reports: Angina, Bypass, CAD, High Cholesterol, Hypertension, [place], Stents Respiratory History: Reports: None Gastrointestinal History: Reports: GERD Genitourinary History: Reports: Renal Calculus Musculoskeletal History: Reports: None 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 Psychiatric History: Reports: None Endocrine/Metabolic History: Reports: Diabetes, Type II Hematologic History: Reports: None Other Hematologic History: Patient refuses blood tranfusions, is a Jevohahs Witness Immunologic History: Reports: None Oncologic (Cancer) History: Reports: None Dermatologic History: Reports: None - Infectious Disease History Infectious Disease History: Reports: Chicken Pox, Measles, Mumps - Past Surgical History HEENT Surgical History: Reports: Cataract Surgery Cardiovascular Surgical History: Reports: Coronary Artery Bypass, Coronary Artery Stent Respiratory Surgical History: Reports: None Male Surgical History: Reports: None Musculoskeletal Surgical History: Reports: Arthroscopic Knee, Other (See Below) Other Musculoskeletal Surgeries/Procedures:: ulna relocation Social & Family History - Family History Family Medical History: Noncontributory - Tobacco Use Smoking Status *Q: Never Smoker - Caffeine Use Caffeine Use: Reports: Coffee - Recreational Drug Use Recreational Drug Use: No - Living Situation & Occupation Living situation: Reports: Occupation: Retired ED ROS GENERAL - Review of Systems Review Of Systems: Comprehensive ROS is negative, except as noted in HPI. ED EXAM, GENERAL - Physical Exam Exam: See Below Exam Limited By: No Limitations General Appearance: Alert, WD/WN, No Apparent Distress Eye Exam: Bilateral Eye: Normal Inspection Ears: Normal External Exam Nose: Normal Inspection, Normal Mucosa Throat/Mouth: No: Normal Oropharynx (He can barely open his mouth. on the patients left side just anterior to the tonsil there is an area of rather large swelling with mild erythema causing some swelling and uvula deviation to the right. No stridor no drooling. ) Head: Facial Swelling (left side above and below the angle of the mandible. ), Facial Tenderness (Left) Neck: Lymphadenopathy (L), Other (Tenderness and swelling below the left angle of the mandible. ) Respiratory/Chest: No Respiratory Distress, Lungs Clear, Normal Breath Sounds, No Accessory Muscle Use, Chest Non-Tender Cardiovascular: Normal Peripheral Pulses, Regular Rate, Rhythm GI/Abdominal: Normal Bowel Sounds, Soft Extremities: Normal Inspection, Normal Capillary Refill Neurological: Alert, Oriented, Normal Cognition Psychiatric: Normal Affect Skin Exam: Dry, Intact, Cool, Pallor EKG INTERPRETATION EKG Date: 08/08/19 Time: 05:34 Rhythm: Other (1st degree AV block) Rate (Beats/Min): 95 [place]: Normal P-Wave: Present QRS: Normal ST-T: Normal QT: Normal Comparison: No Change Course - Vital Signs Last Recorded V/S: Last Vital Signs Temp 99.3 F 08/08/19 05:23 Pulse 105 H 08/08/19 05:23 Resp 16 08/08/19 05:23 BP 147/66 H 08/08/19 06:30 Pulse Ox 97 08/08/19 05:23 - Orders/Labs/Meds Orders: Active Orders 24 hr Category Date Time Status EKG 12 Lead [EKG Documentation Completion] [RC] URGENT Care 08/08/19 05:42 Active Peripheral IV Care [RC] . DIRECTED Care 08/08/19 05:42 Active Chest 2V [CR] Urgent Exams 08/08/19 05:42 Taken Soft Tissue Neck w Cont [CT] Urgent Exams 08/08/19 05:57 Taken CULTURE STREP A CONFIRMATION [] Stat Lab 08/08/19 07:45 Results STREP SCRN A RAPID W CULT CONF [] Stat Lab 08/08/19 07:45 Results Sodium Chloride 0.9% [Saline Flush] Med 08/08/19 05:42 Active 10 ml FLUSH ASDIRECTED PRN Peripheral IV Insertion Adult [OM.PC] Stat Oth 08/08/19 05:42 Ordered Medication Orders Sodium Chloride (Saline Flush) 10 ml FLUSH ASDIRECTED PRN PRN Reason: Keep Vein Open Last Admin: 08/08/19 05:30 Dose: 10 ml Labs: Laboratory Tests 08/08/19 08/08/19 08/08/19 Range/Units 05:27 05:27 05:27 WBC 9.4 (5.0-10.0) 10^3/uL RBC 3.90 L (4.6-6.2) 10^6/uL Hgb 11.1 L (14.0-18.0) g/dL Hct 32.9 L (40.0-54.0) % MCV 84.4 (80-100) fL MCH 28.5 (27.0-34.0) pg MCHC 33.7 (33.0-35.0) g/dL Plt Count 225 (150-450) 10^3/uL Neut % (Auto) 74.6 (42.2-75.2) % Lymph % (Auto) 13.3 L (20.5-50.1) % [place] % (Auto) 10.4 H (2-8) % Eos % (Auto) 1.6 (1.0-3.0) % Baso % (Auto) 0.1 (0.0-1.0) % PT 9.8 (9.0-12.0) SEC INR 1.0 (0.9-1.2) APTT 28.5 (22.0-34.0) SEC Sodium 138 (135-145) mmol/L Potassium 4.0 (3.6-5.0) mmol/L Chloride 105 (101-111) mmol/L Carbon Dioxide 23.0 (21.0-31.0) mmol/L Anion Gap 14.0 BUN 14 (7-18) mg/dL Creatinine 0.9 (0.6-1.3) mg/dL Est Cr Clr Drug Dosing 82.47 mL/min Estimated GFR (MDRD) > 60 BUN/Creatinine Ratio 15.55 Glucose 193 H (74-105) mg/dL Calcium 9.4 (8.4-10.2) mg/dl Total Bilirubin 0.8 (0.2-1.0) mg/dL AST 18 (10-42) IU/L ALT 26 (10-60) IU/L Alkaline Phosphatase 76 (42-121) IU/L Troponin I 0.16 H* (0.00-0.02) ng/ml Total Protein 7.3 (6.7-8.2) g/dl Albumin 3.9 (3.2-5.5) g/dl Globulin 3.4 Albumin/Globulin Ratio 1.15 02/02/20 Range/Units 09:11 WBC (5.0-10.0) 10^3/uL RBC (4.6-6.2) 10^6/uL Hgb (14.0-18.0) g/dL Hct (40.0-54.0) % MCV (80-100) fL MCH (27.0-34.0) pg MCHC (33.0-35.0) g/dL Plt Count (150-450) 10^3/uL Neut % (Auto) (42.2-75.2) % Lymph % (Auto) (20.5-50.1) % [place] % (Auto) (2-8) % Eos % (Auto) (1.0-3.0) % Baso % (Auto) (0.0-1.0) % PT (9.0-12.0) SEC INR (0.9-1.2) APTT (22.0-34.0) SEC Sodium (135-145) mmol/L Potassium (3.6-5.0) mmol/L Chloride (101-111) mmol/L Carbon Dioxide (21.0-31.0) mmol/L Anion Gap BUN (7-18) mg/dL Creatinine (0.6-1.3) mg/dL Est Cr Clr Drug Dosing mL/min Estimated GFR (MDRD) BUN/Creatinine Ratio Glucose (74-105) mg/dL Calcium (8.4-10.2) mg/dl Total Bilirubin (0.2-1.0) mg/dL AST (10-42) IU/L ALT (10-60) IU/L Alkaline Phosphatase (42-121) IU/L Troponin I 0.12 H* (0.00-0.02) ng/ml Total Protein (6.7-8.2) g/dl Albumin (3.2-5.5) g/dl Globulin Albumin/Globulin Ratio Meds: Medications Generic Name Dose Route Start Last Admin Trade Name Freq PRN Reason Stop Dose Admin Sodium Chloride 10 ml 08/08/19 05:42 08/08/19 05:30 Saline Flush FLUSH 10 ml ASDIRECTED PRN Administration Keep Vein Open Discontinued Medications Generic Name Dose Route Start Last Admin Trade Name Freq PRN Reason Stop Dose Admin Aspirin 324 mg 08/08/19 05:42 08/08/19 05:58 Aspirin PO 08/08/19 05:43 Not Given ONETIME ONE Aspirin 324 mg 08/08/19 06:24 Aspirin PO 08/08/19 06:25 ONETIME ONE Dexamethasone 4 mg 08/08/19 05:57 08/08/19 06:09 Dexamethasone IVPUSH 08/08/19 05:58 4 mg ONETIME ONE Administration Dexamethasone 10 mg 08/08/19 07:10 08/08/19 07:54 Dexamethasone IVPUSH 08/08/19 07:11 10 mg ONETIME ONE Administration Clindamycin Phosphate 900 mg/ 106 mls @ 200 mls/hr 08/08/19 05:57 08/08/19 06 :23 Sodium Chloride IV 08/08/19 06:28 200 mls/hr ONETIME ONE Administration Ceftriaxone Sodium 2 gm/ 100 mls @ 200 mls/hr 08/08/19 07:45 08/08/19 07:54 Sodium Chloride IV 08/08/19 08:14 200 mls/hr ONETIME ONE Administration Iopamidol 100 ml 08/08/19 06:49 08/08/19 06:54 Isovue-300 (61%) IVPUSH 08/08/19 06:50 100 ml ONETIME ONE Administration Morphine Sulfate 4 mg 08/08/19 06:13 08/08/19 06:18 Morphine IVPUSH 08/08/19 06:14 4 mg ONETIME ONE Administration Nitroglycerin 0.4 mg 08/08/19 06:25 08/08/19 06:30 Nitrostat SL 08/08/19 06:26 0.4 mg ONETIME ONE Administration Ondansetron HCl 4 mg 08/08/19 05:56 08/08/19 06:09 Zofran IV 08/08/19 05:57 4 mg ONETIME ONE Administration - Re-Assessments/Exams Free Text/Narrative Re-Assessment/Exam: 08/08/19 07:[address] Bullard at this time for change of shift. Departure - Departure Disposition: Home, Self-Care 01 Clinical Impression: Atypical chest pain, Acute bacterial tonsillitis Instructions: Nonspecific Chest Pain, Tonsillitis Forms: ED Department Discharge Additional Instructions: Rx: Zithromax 500mg Rx: Decadron (Dexamethasone) 4mg Frequent saltwater gargles until throat improves. Follow up in clinic with your primary doctor in 1 to 2 days for tonsil/throat recheck. 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 Sepsis Event Note - Evaluation Sepsis Screening Result: No Definite Risk - Focused Exam Vital Signs: Vital Signs Temp Pulse Resp BP BP Pulse Ox 08/08/19 06:30 147/66 H 08/08/19 05:23 99.3 F 105 H 16 129/74 97 Date Exam was Performed: 08/08/19 Time Exam was Performed: 07:01 - My Orders Last 24 Hours: My Active Orders 08/08/19 07:45 CULTURE STREP A CONFIRMATION [RM] Stat STREP SCRN A RAPID W CULT CONF [RM] Stat - Assessment/Plan Last 24 Hours: My Active Orders 08/08/19 07:45 CULTURE STREP A CONFIRMATION [RM] Stat STREP SCRN A RAPID W CULT CONF [RM] Stat <Jude Bullard - Last Filed: 08/08/19 09:45> Course - Radiology Interpretation Free Text/Narrative:: [facility] Final Radiology Report Call: [phone] assistance Online chat: [email or web address] Name: JULY SEPULVEDA Age: 68Years M Date: 08/08/2019 SSN: -- : [id number] Study: XR CHEST 2 VIEWS FRONTAL & LAT Requesting Physician: ESTEFANI MCCORMACK Images: 2 Addl Studies: Provided Clinical History: Contrast: Contrast Medium: Contrast Amount: Contrast Method: CONFIDENTIALITY STATEMENT This report is intended only for use by the referring physician, and only in accordance with law. If you received this in error, call [phone]. Page 1 of 1 PROCEDURE INFORMATION: Exam: XR Chest, 2 Views Exam date and time: 08/08/2019 6:45 AM Age: 68 years old Clinical indication: Shortness of breath; Chest pain TECHNIQUE: Imaging protocol: XR of the chest Views: 2 views. COMPARISON: CR Chest 1V Frontal 07/09/2019 12:59 PM FINDINGS: Lungs: No pneumonia or pulmonary edema. Pleural space: No pleural effusion or pneumothorax. Heart/Mediastinum: The cardiac silhouette is not enlarged. Prior CABG. Bones/joints: Prior median sternotomy. IMPRESSION: No acute abnormality. Thank you for allowing us to participate in the care of your patient. Dictated and Authenticated by: Arturo Yepez MD 08/08/2019 7:39 AM Central Time ([place] & [place]) [facility] [place] [facility] Final Radiology Report Call: [phone] assistance Online chat: [email or web address] Name: JULY SEPULVEDA Age: 68Years M Date: 08/08/2019 SSN: -- : [id number] Study: CT NECK SOFT TISSUE W Requesting Physician: ESTEFANI MCCORMACK Images: 285 Addl Studies: Provided Clinical History: Contrast: With Contrast Medium: isovue 300 Contrast Amount: 75 mL Contrast Method: lac Page 1 of 2 PROCEDURE INFORMATION: Exam: CT Neck With Contrast Exam date and time: 08/08/2019 7:02 AM Age: 68 years old Clinical indication: Left sided swelling--peritonsilar abcess? TECHNIQUE: Imaging protocol: Computed tomography images of the neck with intravenous contrast. Radiation optimization: All CT scans at this facility use at least one of these dose optimization techniques: automated exposure control; mA and/or kV adjustment per patient size (includes targeted exams where dose is matched to clinical indication); or iterative reconstruction. Contrast material: ISOVUE 300; Contrast volume: 75 ml; Contrast route: LAC; COMPARISON: No relevant prior studies available. FINDINGS: Nasopharynx: Unremarkable. Oropharynx: There is enlargement of the left palatine tonsil compatible with tonsillitis given the history. There is slight blurring of the fat in the adjacent parapharyngeal fat which can be due to edema or inflammation. However, no tonsillar or peritonsillar abscess appears to be present. Hypopharynx: Unremarkable Larynx: Unremarkable. Normal epiglottis. Retropharyngeal space: Unremarkable. Submandibular/Parotid glands: The parotid and submandibular salivary glands appear normal. Thyroid: The thyroid gland is subjectively diffusely enlarged. Lymph nodes: No pathologically enlarged lymph nodes. Trachea: Visualized trachea is unremarkable. Lungs: Unremarkable as visualized. Vasculature: There is bilateral carotid bifurcation atherosclerotic plaque. JULY SEPULVEDA | Final Radiology Report CONFIDENTIALITY STATEMENT This report is intended only for use by the referring physician, and only in accordance with law. If you received this in error, call [phone]. Page 2 of 2 Bones/joints: Multilevel degenerative changes present in the cervical spine. Soft tissues: No superficial soft tissue swelling. IMPRESSION: Findings compatible left-sided tonsillitis given the history. However, no abscess is identified. Thank you for allowing us to participate in the care of your patient. Dictated and Authenticated by: Arturo Yepez MD 08/08/2019 7:43 AM Central Time ([place] & [place]) - Re-Assessments/Exams Free Text/Narrative Re-Assessment/Exam: 08/08/19 09:22 I consulted [facility], but not Oral/Facial/Max. surgeon was available. I consulted cardiology, Dr. Rosas, who advises repeating the troponin and d/c pt home if not increasing. He also reports the pt has had multiple cardiac caths w/ stents and is has no vessels left to stent, therefore is limited to medical management. He also relates that the pt has a chronic 15yr history of non- cardiac chest pain that they believe is due to esophageal spasms and/or esophagitis. Dr. Rosas recommends pt f/u in clinic with cardiology for recheck and possible stress test. The CT shows left tonsillitis which is not complicated by abscess, and will be treated with Decadron 20mg IV, Clindamycin 900mg IV, Rocephin 2g, and will be d/ c'd with Rx Zithromax 500mg, and Decadron 4mg with follow up in clinic with his PCP in 1 to 2 days. Departure - Departure Time of Disposition: 09:42 Condition: Good Sepsis Event Note - Focused Exam Date Exam was Performed: 08/08/19 Time Exam was Performed: 09:42 - My Orders Last 24 Hours: My Active Orders 08/08/19 07:45 CULTURE STREP A CONFIRMATION [RM] Stat STREP SCRN A RAPID W CULT CONF [RM] Stat - Assessment/Plan Last 24 Hours: My Active Orders 08/08/19 07:45 CULTURE STREP A CONFIRMATION [RM] Stat STREP SCRN A RAPID W CULT CONF [RM] Stat"
[2019-08-08] MEDS ORDERED: Morphine 2 MG/ML Syringe IVPUSH ONE (06:13)
[2019-08-08] MEDS ORDERED: Nitroglycerin 0.4 MG Tab.SL SL ONE (06:25)
[2019-08-08 06:31] VITALS: BP 147/66
[2019-08-08] MEDS ORDERED: Iopamidol 612 MG/ML 100 ML Bottle IVPUSH ONE (06:49)
[2019-08-08] MEDS ORDERED: cefTRIAXone 2 GM in Sodium Chloride 0.9% 100 ML IV ONE (07:45)
== END 2019-08-08 09:59 | disposition home or self-care (01) ==
LOC: DL.ED 05:25
DX: R07.89 Other chest pain (principal); J03.80 Acute tonsillitis due to other specified organisms; B96.89 Other specified bacterial agents as the cause of diseases classified elsewhere; I25.2 Old myocardial infarction; I25.709 Atherosclerosis of coronary artery bypass graft(s), unspecified, with unspecified angina pectoris; I10 Essential (primary) hypertension; H54.8 Legal blindness, as defined in USA; E11.9 Type 2 diabetes mellitus without complications; Z79.02 Long term (current) use of antithrombotics/antiplatelets; Z79.4 Long term (current) use of insulin; Z79.899 Other long term (current) drug therapy; Z95.5 Presence of coronary angioplasty implant and graft; Z95.1 Presence of aortocoronary bypass graft
CPT/HCPCS: 36415; 70491; 71046; 80053; 82962; 84484; 85025; 85610; 85730; 87081; 87430; 93005; 96365; 96367; 96375; 96376; 99285; A9270; J0696; J1100; J2270; J2405; J3490; J7050; Q9967

== ENCOUNTER 2019-08-26 17:02 | Emergency (ER) | payer OTHER ==
[2019-08-26 16:16] VITALS: BP 123/69; PULSE 124
[2019-08-26 16:50] LABS: ANION GAP 13.1; CHLORIDE,CL 105 mmol/L (101-111); SODIUM,NA 137 mmol/L (135-145)
--- NOTE | 2019-08-26 16:51 | EDM.PDOC ---
ED HPI GENERAL MEDICAL PROBLEM - General Chief Complaint: Gastrointestinal Problem Stated Complaint: LOSS OF BLOOD IN STOOLS Time Seen by Provider: 08/26/19 16:15 Source of Information: Reports: Patient History Limitations: Reports: No Limitations - History of Present Illness INITIAL COMMENTS - FREE TEXT/NARRATIVE: This 68 yo male patient reports to the ED due to a GI bleed. The patient reports he had a bout of bleeding 2 days ago, but had another episode just prior to arrival in the ED. Upon arrival in the ED, the patient had another bowel movement with about 500 mL of bright red blood. The patient is a Jehovah' s Witness and refuses blood products. Onset: Other Duration: Constant Location: Reports: Other Quality: Reports: Other Severity: Severe Improves with: Reports: None Worsens with: Reports: None Context: Reports: Other Associated Symptoms: Reports: Other - Related Data Allergies Allergy/AdvReac Type Severity Reaction Status Date / Time atorvastatin Allergy Muscle Verified 08/26/19 16:29 Aches prednisone Allergy Cannot Verified 08/26/19 16:29 Remember rosuvastatin Allergy Muscle Verified 08/26/19 16:29 Aches Home Meds: Home Meds metFORMIN HCl [Metformin HCl] 1,000 mg PO BID 05/02/14 [History] Insulin Glargine,Hum.Rec.Anlog [Lantus Solostar] 40 units INJECT BID 05/03/14 [ History] Apixaban [Eliquis] 2.5 mg PO BID 09/17/18 [History] Clopidogrel [Plavix] 75 mg PO DAILY 09/17/18 [History] Cyanocobalamin (Vitamin B-12) [Vitamin B-12] 1,000 mcg PO DAILY 09/17/18 [ History] Metoprolol Tartrate 50 mg PO BID 09/17/18 [History] Nitroglycerin [Nitrostat] 0.4 mg SL .Q5MIN X 3 DOSES PRN 09/17/18 [History] Tamsulosin [Flomax] 0.4 mg PO BEDTIME 09/17/18 [History] Amoxicillin 500 mg PO QID 08/08/19 [History] Past Medical History HEENT History: Reports: Cataract, Other (See Below) Other HEENT History: legally blind Cardiovascular History: Reports: Angina, Bypass, CAD, High Cholesterol, Hypertension, [place], Stents Respiratory History: Reports: None Gastrointestinal History: Reports: GERD Genitourinary History: Reports: Renal Calculus Musculoskeletal History: Reports: None 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 Psychiatric History: Reports: None Endocrine/Metabolic History: Reports: Diabetes, Type II Hematologic History: Reports: None Other Hematologic History: Patient refuses blood tranfusions, is a Jevohahs Witness Immunologic History: Reports: None Oncologic (Cancer) History: Reports: None Dermatologic History: Reports: None - Infectious Disease History Infectious Disease History: Reports: Chicken Pox, Measles, Mumps - Past Surgical History HEENT Surgical History: Reports: Cataract Surgery Cardiovascular Surgical History: Reports: Coronary Artery Bypass, Coronary Artery Stent Respiratory Surgical History: Reports: None Male Surgical History: Reports: None Musculoskeletal Surgical History: Reports: Arthroscopic Knee, Other (See Below) Other Musculoskeletal Surgeries/Procedures:: ulna relocation Social & Family History - Family History Family Medical History: Noncontributory - Tobacco Use Smoking Status *Q: Never Smoker Second Hand Smoke Exposure: No - Caffeine Use Caffeine Use: Reports: Coffee - Recreational Drug Use Recreational Drug Use: No - Living Situation & Occupation Living situation: Reports: Occupation: Retired ED ROS GENERAL - Review of Systems Review Of Systems: Comprehensive ROS is negative, except as noted in HPI. ED EXAM, GI/ABD - Physical Exam Exam: See Below Exam Limited By: No Limitations General Appearance: Alert, WD/WN, Moderate Distress Eyes: Bilateral: Normal Appearance, EOMI Ears: Normal External Exam, Normal Canal, Hearing Grossly Normal, Normal TMs Nose: Normal Inspection, Normal Mucosa, No Blood Throat/Mouth: Normal Inspection, Normal Lips, Normal Teeth, Normal Gums, Normal Oropharynx, Normal Voice, No Airway Compromise Head: Atraumatic, Normocephalic Neck: Normal Inspection, Supple, Non-Tender, Full Range of Motion Respiratory/Chest: No Respiratory Distress, Lungs Clear, Normal Breath Sounds, No Accessory Muscle Use, Chest Non-Tender Cardiovascular: Tachycardia GI/Abdominal Exam: Tender (diffuse) (Male) Exam: Deferred Rectal (Males) Exam: Deferred Back Exam: Normal Inspection, Full Range of Motion, NT Extremities: Normal Inspection, Normal Range of Motion, Non-Tender, Normal Capillary Refill, No Pedal Edema Neurological: Alert, Oriented Psychiatric: Normal Affect, Normal Mood Skin Exam: Warm, Dry, Intact, Normal Color, No Rash Lymphatic: No Adenopathy Course - Vital Signs Last Recorded V/S: Last Vital Signs Temp 36.3 C 08/26/19 16:14 Pulse 124 H 08/26/19 16:14 Resp 18 08/26/19 16:14 BP 123/69 08/26/19 16:14 Pulse Ox 100 08/26/19 16:14 - Orders/Labs/Meds Orders: Active Orders 24 hr Category Date Time Status CMP [COMPREHENSIVE METABOLIC PN,CMP] [CHEM] Stat Lab 08/26/19 16:03 Ordered Tranexamic Acid [Cyklokapron] 1,000 mg Med 08/26/19 16:36 Ordered Sodium Chloride 0.9% [Normal Saline] 100 ml IV ONETIME Medication Orders Tranexamic Acid 1,000 mg/ (Sodium Chloride) 110 mls @ 660 mls/hr IV ONETIME ONE Stop: 08/26/19 16:45 Labs: Laboratory Tests 08/26/19 Range/Units 16:22 WBC 8.6 (5.0-10.0) 10^3/uL RBC 3.08 L (4.6-6.2) 10^6/uL Hgb 8.6 L D (14.0-18.0) g/dL Hct 26.3 L (40.0-54.0) % MCV 85.4 (80-100) fL MCH 27.9 (27.0-34.0) pg MCHC 32.7 L (33.0-35.0) g/dL Plt Count 286 (150-450) 10^3/uL Neut % (Auto) 73.3 (42.2-75.2) % Lymph % (Auto) 17.5 L (20.5-50.1) % [place] % (Auto) 7.1 (2-8) % Eos % (Auto) 2.0 (1.0-3.0) % Baso % (Auto) 0.1 (0.0-1.0) % Meds: Medications Generic Name Dose Route Start Last Admin Trade Name Freq PRN Reason Stop Dose Admin Tranexamic Acid 1,000 mg/ 110 mls @ 660 mls/hr 08/26/19 16:36 Sodium Chloride IV 08/26/19 16:45 ONETIME ONE Departure - Departure Time of Disposition: 16:58 Disposition: DC/[facility]fer to [facility] 02 Condition: Critical Clinical Impression: GI bleed Qualifiers: GI bleed type/associated pathology: unspecified gastrointestinal hemorrhage type Qualified Code(s): K92.2 - Gastrointestinal hemorrhage, unspecified - Discharge Information *PRESCRIPTION DRUG MONITORING PROGRAM REVIEWED*: Not Applicable *COPY OF PRESCRIPTION DRUG MONITORING REPORT IN PATIENT ASYA: Not Applicable Care Plan Goals: Discussed the patient's history and examination results with Dr. Velasco ([facility] Dr. Velasco accepted the patient for continued evaluation and management. The patient was given TXA during transport. The patient was transported by [facility]. Sepsis Event Note - Evaluation Sepsis Screening Result: No Definite Risk - Focused Exam Vital Signs: Vital Signs Temp Pulse Resp BP Pulse Ox 08/26/19 16:14 36.3 C 124 H 18 123/69 100 Date Exam was Performed: 08/26/19 Time Exam was Performed: 16:43 - My Orders Last 24 Hours: My Active Orders 08/26/19 16:36 Tranexamic Acid [Cyklokapron] 1,000 mg Sodium Chloride 0.9% [Normal Saline] 100 ml IV ONETIME - Assessment/Plan Last 24 Hours: My Active Orders 08/26/19 16:36 Tranexamic Acid [Cyklokapron] 1,000 mg Sodium Chloride 0.9% [Normal Saline] 100 ml IV ONETIME
[~2019-08-26 17:02] MED LIST: Tranexamic Acid 1,000 MG in Sodium Chloride 0.9% 100 ML IV ONE
== END 2019-08-26 17:20 ==
LOC: DL.ED 17:02
DX: K92.2 Gastrointestinal hemorrhage, unspecified (principal); I25.10 Atherosclerotic heart disease of native coronary artery without angina pectoris; I10 Essential (primary) hypertension; I25.2 Old myocardial infarction; E11.9 Type 2 diabetes mellitus without complications; Z79.4 Long term (current) use of insulin; Z79.01 Long term (current) use of anticoagulants; Z79.02 Long term (current) use of antithrombotics/antiplatelets; Z79.899 Other long term (current) drug therapy; Z88.2 Allergy status to sulfonamides
CPT/HCPCS: 36415; 80053; 82272; 85025; 96374; 99284; 99285; J7050